=== PATIENT | female | born 1955 | race Caucasian/White ===

== ENCOUNTER 2017-10-24 12:38 | Emergency (ER) | payer OTHER ==
--- OUTSIDE RECORDS SUMMARY | 2017-10-24 12:45 | XMS REPORT | Continuity of Care Document ---
:1955 Author Organization Interface Problems Problem Status Onset Classification Date Comments Source Date Reported Shortness of 05/19/19 08/25/2017 [facility] breath Medical Center SHORTNESS OF Active 05/19/19 [facility] BREATH [address] [place] [address] Center R93.8; R91.1 Active 02/02/[address] Center CHEST Active 07/26/19 [facility] PAIN/NUMBNESS [address] [place] [address] Center INTRACTABLE Active 03/16/20 [facility] EPILEPSY WITHOUT 16 Medical STATUS EPIL Center EPILEPSY, Active 03/16/20 [facility] UNSOECIFIED Medical WITHOUT STATUS Center EPI SEIZURES Active 01/03/[address] Center INTRACTABLE Active 11/17/19 [facility] EPILEPSY 16 Medical UNDETERMINED Center TO INTRACTABLE Active 09/01/19 [facility] EPILEPSY 16 Medical UNDETERMINDED Center TO COPD/ HTN Active 05/27/[address] Asthma Active Problem 10/11/2017 [facility] Group COPD Active Problem 10/11/2017 [facility] Group Hypertension Resolved Problem 10/11/2017 [facility] Group Seizures Resolved Problem 10/11/2017 [facility] Medical Group Asthma Active Problem 10/11/2017 [facility] [place] COPD Active Problem 10/11/2017 [facility] [place] Hypertension Resolved Problem 10/11/2017 [facility] [place] Seizures Resolved Problem 10/11/2017 [facility] [place] Chronic 08/25/2017 [facility] obstructive Medical pulmonary Center disease, unspecified Essential 08/25/2017 [facility] Asthma Active Problem 10/22/2017 [facility] [place] COPD Active Problem 10/22/2017 [facility] [place] Hypertension Resolved Problem 10/22/2017 [facility] [place] Seizures Resolved Problem 10/22/2017 [facility] [place] OTHER SPECIFIED Active [facility] CONGENITAL Medical DEFORMITIES [place] Medications Medication Details Route Status Patient Ordering Order Source Instructions Provider Date predniSONE 20 mg 40 mg=2 tab, Active oral tablet PO, Daily, X 10 2017 day, # 20 tab, Group 0 Refill(s), Pharmacy: [facility] [id number] azithromycin 500 mg 500 mg=1 tab, Active oral tablet PO, Daily, X 5 2017 day, # 5 tab, 0 Group Refill(s), Pharmacy: [facility] [address] lisinopril 10 mg 10 mg=1 tab, Active oral tablet PO, Daily, # 90 2017 Medical tab, 1 Group Refill(s) clonazePAM 0.5 mg 0.25 mg=0.5 Active oral tablet tab, PO, Daily, 2018 Medical 0 Refill(s) Group Trazodone 50 mg=1 tab, Active Hydrochloride 50 MG PO, Bedtime, 2017 Medical Oral Tablet after meals Group with food. At least 1 hour prior to bedtime., # 30 tab, 2 Refill(s), Pharmacy: [facility] [address] lisinopril 10 mg 10 mg=1 tab, Active oral tablet PO, Daily, # 90 2017 Medical tab, 0 Group Refill(s), Pharmacy: [facility] sertraline 50 mg 50 mg=1 tab, Active oral tablet PO, Daily, # 30 2017 Medical tab, 1 Group Refill(s) lisinopril 10 mg See Inactive oral tablet Instructions, 1 2017 Medical tab PO Daily. Group TAKE 1/2 TAB DAILY., 0 Refill(s) Levetiracetam 500 1,000 mg=2 tab, Active MG Oral Tablet PO, Daily, 0 2017 Medical Refill(s) Group Caltrate 600+D Plus 1 tab, PO, BID, Active Minerals 0 Refill(s) 2018 Medical Group clonazePAM 0.5 mg See No Longer oral tablet Instructions, Active 2017 Medical 1 twice per Group day. 90day supply., 0 Refill(s) Ibuprofen 0 Refill(s) Active 2017 Medical Group Breo Ellipta 100 1 puff, Active mcg-25 mcg INHALATION, 2018 Medical inhalation powder Daily, 0 Group Refill(s) Aspirin 81 MG 81 mg=1 tab, Active Enteric Coated PO, Daily, # 90 2018 Medical Tablet tab, 3 Group Refill(s) lisinopril 5 mg 5 mg=1 tab, PO, No Longer oral tablet Daily, 0 Active 2018 Medical Refill(s) Group verapamil 120 mg 120 mg=1 tab, Active oral tablet PO, Daily, 0 2018 Medical Refill(s) Group 24 HR lamotrigine 100 mg=2 tab, No Longer 50 MG Extended PO, Daily, 0 Active 2018 Medical Release Tablet Refill(s) Group Valium 5 mg, 1 tab, Inactive [place] Route: PO, Drug 2017 Medical form: TAB, Center ONCE, Dosing Weight 41.818, kg, Priority: STAT, Start date: 05/19/17 15:02:00 SAMPLE SEWER, Stop date: 05/19/17 15:02:00 CSTNotes: (Same as: Valium) Albuterol 0.833 6 mL, Route: Inactive [place] MG/ML / Ipratropium NEB, Drug Form: 2018 Medical [place] 0.167 MG/ML SOLN, Dosing Center Inhalant Solution Weight 41.818, [DuoNeb] kg, ONCE, Start date: 05/19/17 15:01:00 SAMPLE SEWER, Stop date: 05/19/17 15:01:00 CSTNotes: (Same as: Duoneb) Verapamil 120 mg, 1 tab, Inactive [place] Route: PO, Drug 2016 Medical form: ERTAB, Center Daily, Dosing Weight 52.273, kg, Start date: 07/26/16 9:00:00 CDT, Duration: 30 day, Stop date: 08/24/16 9:00:00 CDTNotes: Do not crush or chew. (Same As: Calan SR, Isoptin SR) "Avoid grapefruit and grapefruit juice" Spiriva 18 microgram, 1 Inactive [place] inhalation, 2016 Medical Route: Center INHALATION, Drug form: CAP, Daily, Dosing Weight 52.273, kg, Start date: 07/26/16 9:00:00 CDT, Duration: 30 day, Stop date: 08/24/16 9:00:00 CDTNotes: (Same As: Spiriva) Lisinopril 10 mg, 1 tab, Inactive [facility] Route: PO, Drug 2017 Medical form: TAB, Center Daily, Dosing Weight 52.273, kg, Start date: 07/26/16 9:00:00 CDT, Duration: 30 day, Stop date: 08/24/16 9:00:00 CDTNotes: (Same as: Prinivil, Zestril) Levetiracetam 1000 1,000 mg, 2 Inactive [facility] MG Oral Tablet tab, Route: PO, 2017 Medical Drug form: TAB, Center Daily, Dosing Weight 52.273, kg, Start date: 07/26/16 9:00:00 CDT, Duration: 30 day, Stop date: 08/24/16 9:00:00 CDTNotes: (Same as:Keppra) lamotrigine 150 MG 150 mg, 1 tab, No Longer [facility] Oral Tablet Route: PO, Drug Active 2016 Medical form: TAB, Center Daily, Dosing Weight 52.273, kg, Start date: 07/26/16 9:00:00 CDT, Duration: 30 day, Stop date: 08/24/16 9:00:00 CDT LaMICtal 100 mg, 1 tab, Inactive [facility] Route: PO, Drug 2017 Medical form: TAB, Center Daily, Start date: 07/26/16 9:00:00 CDT, Duration: 30 day, Stop date: 08/24/16 9:00:00 CDTNotes: (Same as:LaMICtal) cetirizine 10 mg, 1 tab, Inactive [facility] Route: PO, Drug 2017 Medical form: TAB, Center Daily, Start date: 07/26/16 9:00:00 CDT, Duration: 30 day, Stop date: 08/24/16 9:00:00 CDTNotes: (Same As: Zyrtec) Clonazepam 0.5 mg, 1 tab, No Longer [facility] Route: PO, Drug Active 2016 Medical form: TAB, Center Bedtime, Dosing Weight 52.273, kg, Start date: 07/25/16 21:00:00 CDT, Duration: 30 day, Stop date: 08/23/16 21:00:00 CDTNotes: (Same As: KlonoPIN) atorvastatin 20 mg, 1 tab, No Longer [place] Route: PO, Drug Active 2016 Medical form: TAB, Center Bedtime, Dosing Weight 52.273, kg, Start date: 07/25/16 21:00:00 CDT, Duration: 30 day, Stop date: 08/23/16 21:00:00 CDTNotes: (Same As: Lipitor) Albuterol 0.833 3 mL, Route: No Longer [place] MG/ML / Ipratropium NEB, Drug Form: Active 2017 Medical [place] 0.167 MG/ML SOLN, Dosing Center Inhalant Solution Weight 52.273, kg, RQ6H, Start date: 07/25/16 20:00:00 CDT, Duration: 30 day, Stop date: 08/24/16 14:00:00 CDTNotes: (Same as: Duoneb) Famotidine 20 MG 20 mg, 1 tab, No Longer [place] Oral Tablet Route: PO, Drug Active 2016 Medical [Pepcid] form: TAB, BID, Center Dosing Weight 52.273, kg, Start date: 07/25/16 17:00:00 CDT, Duration: 30 day, Stop date: 08/24/16 9:00:00 CDTNotes: (Same as: Pepcid) Nebulizer 1 ea, MISC, Active [place] Misc/Other PRN, PRN As 2017 Medical directed by [place] physician, # 1 kit, 0 Refill(s) methylPREDNISolone 40 mg, 1 mL, No Longer [place] SODium SUCCinate Route: IVP, Active 2016 Medical Drug form: INJ, Center Q8H, Dosing Weight 52.273, kg, Start date: 07/25/16 16:00:00 CDT, Duration: 30 day, Stop date: 08/24/16 8:00:00 CDTNotes: (Same as:Solu-MEDROL, A-Methapred) Albuterol 0.83 2.49 mg=3 mL, Active [place] MG/ML Inhalant NEB, Q6H, PRN 2017 Medical Solution as needed for Center shortness of breath, # 120 ea, 3 Refill(s) predniSONE 20 mg 40 mg=2 tab, Active [facility] oral tablet PO, Daily, Take 2017 Medical 3 tablets for Center 60 mg dose, X 5 day, # 10 tab, 0 Refill(s) Symbicort 160/4.5 2 puff, Active [facility] inhalation aerosol INHALATION, 2017 Medical with adapter BID, # 1 ea, 0 Center Refill(s) tiotropium 0.018 18 microgram, Active [facility] MG/ACTUAT Inhalant INHALATION, 2017 Medical Powder [Spiriva] Daily, # 30 ea, Center 0 Refill(s) 200 ACTUAT 90 microgram=1 Active [facility] Albuterol 0.09 puff, INHALER, 2017 Medical MG/ACTUAT Metered Q4H, PRN for Center Dose Inhaler wheezing, # 1 [ProAir HFA] ea, 0 Refill(s) azithromycin 500 mg 500 mg=1 tab, Active [facility] oral tablet PO, Daily, X 3 2017 Medical day, # 3 tab, 0 Center Refill(s) Azithromycin 500 mg, Route: No Longer [place] IVPB, Drug Active 2016 Medical form: PDR/INJ, Center [id number], Dosing Weight 52.273, kg, Start date: 07/25/16 15:00:00 CDT, Duration: 30 day, Stop date: 08/23/16 15:00:00 CDTNotes: (Same As: Zithromax IV) LaMICtal 50 mg, 2 tab, No Longer [facility] Route: PO, Drug Active 2016 Medical form: TAB, Center Daily, Start date: 07/25/16 15:00:00 CDT, Duration: 30 day, Stop date: 08/24/16 9:00:00 CDTNotes: (Same as:LaMICtal) predniSONE 60 mg, 3 tab, Inactive [place] Route: PO, Drug 2016 Medical form: TAB, Center ONCE, Dosing Weight 52.273, kg, Priority: STAT, Start date: 07/25/16 14:33:00 CDT, Stop date: 07/25/16 14:33:00 CDTNotes: Take with food. Claritin 10 mg, 1 tab, Inactive [place] Route: PO, 2017 Medical Daily, Dosing Center Weight 52.273, kg, PRN as needed for allergy symptoms, Start date: 07/25/16 14:23:00 CDT, Duration: 30 day, Stop date: 08/24/16 14:22:00 CDT Docusate Sodium 100 100 mg, 1 cap, No Longer [place] MG Oral Capsule Route: PO, Drug Active 2017 Medical form: CAP, Center Q12H, Dosing Weight 52.273, kg, PRN Constipation, Start date: 07/25/16 14:22:00 CDT, Duration: 30 day, Stop date: 08/24/16 14:21:00 CDTNotes: (Same as: Colace) (Do Not Crush) Aspirin 162 mg, 2 tab, Inactive [place] Route: CHEW, 2017 Medical Drug form: [place] ECTAB, ONCE, Dosing Weight 52.273, kg, Priority: STAT, Start date: 07/25/16 13:43:00 CDT, Stop date: 07/25/16 13:43:00 CDTNotes: Do not crush or chew. (Same As: Ecotrin) Azithromycin 500 mg, 2 tab, Inactive [place] Route: PO, Drug 2017 Medical form: TAB, Center ONCE, Dosing Weight 52.273, kg, Start date: 07/25/16 13:35:00 CDT, Stop date: 07/25/16 13:35:00 CDTNotes: Take 1 hour before or 2 hours after meals. (Same As: Zithromax) Prednisone 60 mg, 1.2 tab, Inactive [place] Route: PO, Drug 2017 Medical form: TAB, Center ONCE, Dosing Weight 52.273, kg, Priority: STAT, Start date: 07/25/16 13:35:00 CDT, Stop date: 07/25/16 13:35:00 CDTNotes: Take with food. Albuterol 0.83 2.49 mg, 3 mL, Inactive [place] MG/ML Inhalant Route: NEB, 2017 Medical Solution Drug form: [place] SOLN, ONCE, Dosing Weight 52.273, kg, Priority: STAT, Start date: 07/25/16 11:57:00 CDT, Stop date: 07/25/16 11:57:00 CDTNotes: SEE RT DOCUMENTATION (Same as: Indigo) Keppra 1,000 mg, 2 Inactive [place] tab, Route: PO, 2017 Medical Drug form: TAB, Center ONCE, Dosing Weight 52.273, kg, Start date: 07/25/16 11:09:00 CDT, Stop date: 07/25/16 11:09:00 CDTNotes: (Same as:Keppra) Aspirin 81 mg, 1 tab, Inactive [place] Route: CHEW, 2017 Medical Drug form: Center CHEWTAB, ONCE, Dosing Weight 52.273, kg, Priority: STAT, Start date: 07/25/16 10:25:00 CDT, Stop date: 07/25/16 10:25:00 CDTNotes: Take with food. Albuterol 0.83 2.49 mg, 3 mL, Inactive [place] MG/ML Inhalant Route: NEB, 2016 Medical Solution Drug form: Center SOLN, ONCE, Dosing Weight 52.273, kg, Priority: STAT, Start date: 07/25/16 10:15:00 CDT, Stop date: 07/25/16 10:15:00 CDTNotes: SEE RT DOCUMENTATION (Same as: Indigo) Albuterol 0.833 3 ml, Route: No Longer [place] MG/ML / Ipratropium NEB, Drug Form: Active 2017 Medical [place] 0.167 MG/ML SOLN, Dosing Center Inhalant Solution Weight 52.273, [DuoNeb] kg, PRN, PRN Respiratory Protocol, Start date: 07/25/16 10:15:00 CDT, Duration: 30 day, Stop date: 08/24/16 10:14:00 CDTNotes: (Same as: Duoneb) Docusate Sodium 100 100 mg=1 cap, Active [place] MG Oral Capsule PO, Q12H, PRN 2016 Medical as needed for Center constipation, # 30 cap, 0 Refill(s) Famotidine 20 MG 20 mg=1 tab, Active [place] Oral Tablet PO, BID, # 60 2016 Medical [Pepcid] tab, 0 Center Refill(s) Acetaminophen 300 2 tab, PO, Q4H, Active [place] MG / Codeine PRN Pain Score 2015 Medical Phosphate 30 MG 4-6, X 14 day, Center Oral Tablet # 90 tab, 0 [Tylenol with Refill(s) Codeine #3] dexamethasone 4 mg 4 mg=1 tab, PO, Active [place] oral tablet TID, Taper 2015 Medical schedule: 3x a Center day for days 1/2, 2x a day for days 3/4, daily for days 5/6, 1/2 tab daily for day 7, X 7 day, # 21 tab, 0 Refill(s) Clonazepam 0.5 mg, 1 tab, No Longer [facility] Route: PO, Drug Active 2015 Medical form: TAB, Center Bedtime, Dosing Weight 42.727, kg, Start date: 01/17/16 21:00:00 CDT, Duration: 30 day, Stop date: 02/15/16 21:00:00 CDTNotes: (Same As: KlonoPIN) atorvastatin 20 mg, 1 tab, No Longer [facility] Route: PO, Drug Active 2015 Medical form: TAB, Center Bedtime, Dosing Weight 42.727, kg, Start date: 01/17/16 21:00:00 CDT, Duration: 30 day, Stop date: 02/15/16 21:00:00 CDTNotes: (Same As: Lipitor) vancomycin 1 gm, Route: No Longer [facility] IVPB, Drug Active 2015 Medical form: INJ, Center ABXQ8H, Start date: 01/17/16 18:30:00 CDT, Duration: 48 hr, Stop date: 01/19/16 10:30:00 CDTNotes: TIME CRITICAL MEDICATION (Same As: Vancocin) Infusion rate 2001 mg: infuse over 2.5 hours MEDICATION WASTE Product Size: 1000 mg Product Wasted: _0__ mg ceFAZolin 1 gm, Route: No Longer [facility] IV, Drug form: Active 2015 Medical PDR/INJ, Center ABXQ8H, Start date: 01/17/16 18:00:00 CDT, Duration: 2 day, Stop date: 01/19/16 10:00:00 CDTNotes: (Same As: Jahaira Brown) MEDICATION WASTE Product Size: 1000 mg Product Wasted: _0__ mg pantoprazole 40 mg, 1 tab, No Longer [place] Route: PO, Drug Active 2015 Medical form: ECTAB, Center Before Dinner, Dosing Weight 42.727, kg, Start date: 01/17/16 16:30:00 CDT, Duration: 30 day, Stop date: 02/15/16 16:30:00 CDTNotes: Tablet should not be chewed or crushed. (Same as: Protonix) Acetaminophen 325 1 tab, Route: No Longer [place] MG / Hydrocodone PO, Drug Form: Active 2015 Medical Bitartrate 10 MG TAB, Dosing Center Oral Tablet [[place] Weight 42.727, 10/325] kg, Q4H, PRN Pain Score 1-3, Start date: 01/17/16 14:11:00 CDT, Duration: 30 day, Stop date: 02/16/16 14:10:00 CDTNotes: (Same as: [place] 325/10) Dexamethasone 4 mg, 1 mL, No Longer [place] Route: IVP, Active 2015 Medical Drug form: INJ, Center Q6H, Dosing Weight 42.727, kg, Start date: 01/17/16 12:00:00 CDT, Duration: 5 day, Stop date: 01/22/16 6:00:00 CDTNotes: Concentration: 4mg/ml Vancomycin 6.67 1 gm, Route: Inactive [place] MG/ML Injectable IVPB, Drug 2015 Medical Solution form: INJ, Center ONCE, Dosing Weight 42.727, kg, Start date: 01/17/16 10:19:00 CDT, Stop date: 01/17/16 10:19:00 CDT Verapamil 120 mg, 1 tab, No Longer [place] Route: PO, Drug Active 2015 Medical form: ERTAB, Center Daily, Dosing Weight 42.727, kg, Start date: 01/17/16 9:00:00 CDT, Duration: 30 day, Stop date: 02/15/16 9:00:00 CDTNotes: Do not crush or chew. (Same As: Calan SR, Isoptin SR) "Avoid grapefruit and grapefruit juice" Spiriva 18 microgram, 1 No Longer [facility] inhalation, Active 2015 Medical Route: Center INHALATION, Drug form: CAP, Daily, Dosing Weight 42.727, kg, Start date: 01/17/16 9:00:00 CDT, Duration: 30 day, Stop date: 02/15/16 9:00:00 CDTNotes: (Same As: Spiriva) Levetiracetam 1000 1,000 mg, 2 No Longer [facility] MG Oral Tablet tab, Route: PO, Active 2015 Medical Drug form: TAB, Center Daily, Dosing Weight 42.727, kg, Start date: 01/17/16 9:00:00 CDT, Duration: 30 day, Stop date: 02/15/16 9:00:00 CDTNotes: (Same as:Keppra) Lisinopril 10 mg, 1 tab, No Longer [facility] Route: PO, Drug Active 2015 Medical form: TAB, Center Daily, Dosing Weight 42.727, kg, Start date: 01/17/16 9:00:00 CDT, Duration: 30 day, Stop date: 02/15/16 9:00:00 CDTNotes: (Same as: Prinivil, Zestril) lamotrigine 150 MG 150 mg, 1.5 No Longer [facility] Oral Tablet tab, Route: PO, Active 2015 Medical Drug form: TAB, Center Daily, Dosing Weight 42.727, kg, Start date: 01/17/16 9:00:00 CDT, Duration: 30 day, Stop date: 02/15/16 9:00:00 CDTNotes: (Same as:LaMICtal) Docusate Sodium 100 100 mg, 1 cap, No Longer [facility] MG Oral Capsule Route: PO, Drug Active 2015 Medical form: CAP, Center Q12H, Dosing Weight 42.727, kg, Start date: 01/17/16 9:00:00 CDT, Duration: 30 day, Stop date: 02/15/16 21:00:00 CDTNotes: (Same as: Colace) (Do Not Crush) Saline Flush 0.9% 10 ml, Route: No Longer [facility] IVP, Drug Form: Active 2015 Medical INJ, Dosing Center Weight 42.727, kg, Q12H, Start date: 01/17/16 9:00:00 CDT, Duration: 30 day, Stop date: 02/15/16 21:00:00 CDTNotes: (Same as: BD Posiflush) sennosides, CUSTODIAL 8.6 mg, 1 tab, No Longer [facility] Route: PO, Drug Active 2015 Medical Form: TAB, Center Dosing Weight 42.727, kg, Q12H, Start date: 01/17/16 9:00:00 CDT, Duration: 30 day, Stop date: 02/15/16 21:00:00 CDTNotes: (Same as: Senokot) Vancomycin 6.67 1,000 mg, Inactive [facility] MG/ML Injectable Route: IVPB, 2015 Medical Solution Drug form: INJ, Center Q8H, Dosing Weight 42.727, kg, Start date: 01/17/16 8:00:00 CDT, Duration: 48 hr, Stop date: 01/19/16 0:00:00 CDT Cefazolin 1 gm, Route: Inactive [facility] IVPB, ABXQ8H, 2016 Medical Dosing Weight Center 42.727, kg, For Ventolin HFA 90 2 puff, Route: No Longer [facility] mcg/inh inhalation INHALER, Drug Active 2015 Medical aerosol with Form: AERO/A, Center adapter Dosing Weight 42.727, kg, QID, PRN as needed for wheezing, Start date: 01/17/16 6:15:00 CDT, Duration: 30 day, Stop date: 02/16/16 6:14:00 CDTNotes: Albuterol 90 microgram/inh 8gm HFA WASTE: Aerosol - Return to Pharmacy Same as: Ventolin, Proventil 200 ACTUAT 1 puff, Route: No Longer [facility] Albuterol 0.09 INHALER, Drug Active 2015 Medical MG/ACTUAT Metered Form: AERO/A, Center Dose Inhaler Dosing Weight [ProAir HFA] 42.727, kg, Q4H, PRN Wheezing, Start date: 01/17/16 6:15:00 CDT, Duration: 30 day, Stop date: 02/16/16 6:14:00 CDTNotes: Albuterol 90 microgram/inh 8gm HFA WASTE: Aerosol - Return to Pharmacy Same as: Venttatiana, Proventil Insulin regular 8 unit, 0.08 No Longer [place] mL, Route: Active 2015 Medical SUB-Q, Drug Center form: SOLN, Sliding Scale, Dosing Weight 42.727, kg, PRN Blood Glucose Results, Start date: 01/17/16 6:13:00 CDT, Duration: 30 day, Stop date: 02/16/16 6:12:00 CDTNotes: (Same as: Humulin R) Roll in palms of hands gently; Do not shake vigorously. "single patient use only" (Restricted to patients requiring a dose > 60 units) WASTE: F/P - Black; E - Municipal Trash Bin Stable for 28 days at room temperature Expires in days from D ate Saline Flush 0.9% 10 ml, Route: No Longer [place] IVP, Drug Form: Active 2015 Medical INJ, Dosing Center Weight 42.727, kg, PRN, PRN Line Flush, Start date: 01/17/16 6:13:00 CDT, Duration: 30 day, Stop date: 02/16/16 6:12:00 CDTNotes: (Same as: BD Posiflush) Morphine 2 mg, 1 mL, No Longer [facility] Route: IVP, Active 2015 Medical Drug form: INJ, Center Q1H, Dosing Weight 42.727, kg, PRN Pain Score 7-10, Start date: 01/17/16 6:13:00 CDT, Duration: 30 day, Stop date: 02/16/16 6:12:00 CDTNotes: (Same as:MORPhine Sulfate) Ondansetron 4 mg, 2 mL, No Longer [facility] Route: IVP, Active 2015 Medical Drug form: INJ, Center Q8H, Dosing Weight 42.727, kg, PRN Nausea & Vomiting, Start date: 01/17/16 6:13:00 CDT, Duration: 30 day, Stop date: 02/16/16 6:12:00 CDTNotes: (Same as: Jez) MEDICATION WASTE Product Size: 4 mg Product Wasted: __0_ mg Sodium Chloride 1,000 mL, Rate: No Longer [place] 0.154 MEQ/ML 100 ml/hr, Active 2015 Medical Injectable Solution Infuse over: 10 Center hr, Route: IV, Dosing Weight 42.727 kg, Total Volume: 1,000, Start date: 01/17/16 6:13:00 CDT, Duration: 30 day, Stop date: 02/16/16 6:12:00 CDT ceFAZolin 2 gm, 100 mL, Inactive [facility] Route: IVPB, 2015 Medical Drug form: INJ, Center PRE OP, Start date: 01/17/16 5:00:00 CDT, Duration: 1 day, Stop date: 01/18/16 4:59:00 CDTNotes: Same as: Ancef NS + KCL 20mEq/L 1,000 mL, Rate: No Longer [facility] 1000ml (Premix) 70 ml/hr, Active 2015 Medical 1,000 mL Infuse over: Center 14.3 hr, Route: IV, Dosing Weight 42.727 kg, Total Volume: 1,000, Start date: 01/17/16 5:00:00 CDT, Duration: 1 day, Stop date: 01/18/16 4:59:00 CDTNotes: PREMIX IV - Do Not Alter WASTE: F/P - Sink; E - Municipal Trash Bin LaMICtal XR 150 mg, Route: Inactive [place] PO, Daily, 2016 Medical Dosing Weight Center 43.636, kg, Priority: STAT, Start date: 12/17/15 11:57:00 CDT, Duration: 30 day, Stop date: 01/16/16 9:00:00 CDT Keppra 1,000 mg, Inactive [place] Route: IV, 2015 Medical ONCE, Dosing Center Weight 43.636, kg, Start date: 12/17/15 6:48:00 CDT, Stop date: 12/17/15 6:48:00 CDTNotes: Same as Keppra Mix with 100 mL NS, LR or D5W MEDICATION WASTE Product Size: 500 mg Product Wasted: ___ mg Acetaminophen 300 1 tab, PO, Q4H, Active [facility] MG / Codeine PRN for pain, # 2016 Medical Phosphate 30 MG 60 tab, 0 Center Oral Tablet Refill(s) [Tylenol with Codeine #3] Ondansetron 4 MG 4 mg=1 tab, PO, Active [place] Oral Tablet Q8H, # 60 tab, 2016 Medical [Zofran] 0 Refill(s) [place] Docusate Sodium 100 100 mg=1 cap, Active [facility] MG Oral Capsule PO, Q12H, # 30 2016 Medical cap, 0 Center Refill(s) magnesium citrate 300 ml, Route: No Longer [place] PO, Drug Form: Active 2015 Medical LIQ, Dosing Center Weight 43.636, kg, ONCE, Start date: 12/16/15 17:02:00 CDT, Stop date: 12/16/15 17:02:00 CDTNotes: (Same as: Citrate of Magnesia) remove patch 1 patch, Route: No Longer [facility] TOP, Drug form: Active 2015 Medical ERFILM, Daily, Center Start date: 12/16/15 9:00:00 CDT, Duration: 30 day, Stop date: 01/14/16 9:00:00 CDTNotes: Remove old patch before application of new patch. WASTE: F/P - P Waste Black; E - P Waste Black Ativan 1 mg, 0.5 mL, Inactive [place] Route: IV, Drug 2015 Medical form: INJ, Center ONCE, Dosing Weight 43.636, kg, Priority: NOW, Start date: 12/16/15 7:32:00 CDT, Stop date: 12/16/15 7:32:00 CDTNotes: (Same as: Ativan) Hydroxyzine 25 mg, 1 tab, No Longer [place] Hydrochloride 25 MG Route: PO, Drug Active 2015 Medical Oral Capsule form: TAB, Q6H, Center [Vistaril] Dosing Weight 43.636, kg, PRN Anxiety, Start date: 12/15/15 16:08:00 CDT, Duration: 30 day, Stop date: 01/14/16 16:07:00 CDTNotes: (Same as: Atarax) Nicoderm C-Q 7 mg, 1 patch, No Longer [place] Route: TOP, Active 2015 Medical Drug form: [place] ERFILM, Daily, Dosing Weight 43.636, kg, Start date: 12/15/15 13:00:00 CDT, Duration: 30 day, Stop date: 01/14/16 9:00:00 CDTNotes: (Same as: Habitrol) "Remove old patch before application of new patch" WASTE: F/P - P Waste Black; E - P Waste Black Effexor XR 37.5 mg, 1 cap, Inactive [place] Route: PO, Drug 2015 Medical form: ERCAP, Center Daily, Dosing Weight 43.636, kg, Start date: 12/15/15 13:00:00 CDT, Duration: 30 day, Stop date: 01/14/16 9:00:00 CDTNotes: Do not open, crush, or chew. (Same As: Effexor XR) Keppra XR 1,000 mg, 2 No Longer [place] tab, Route: PO, Active 2015 Medical Drug form: [place] MERCEDES SEVERINO, Dosing Weight 43.636, kg, Start date: 12/15/15 9:00:00 CDT, Duration: 30 day, Stop date: 01/13/16 9:00:00 CDTNotes: Same as: Keppra XR "Do Not Crush" Non-Formulary Item pneumococcal 0.5 mL, Route: Inactive [place] capsular IM, Drug Form: 2016 Medical polysaccharide type INJ, Daily, Center 1 vaccine / Start date: pneumococcal 12/15/15 capsular 9:00:00 CDT, polysaccharide type Duration: 1 10A vaccine / doses or times, pneumococcal Stop date: capsular 12/15/15 polysaccharide type 9:00:00 11A vaccine / CDTNotes: (Same pneumococcal as: Pneumovax capsular 23) polysaccharide type Refrigerate 12F vaccine / pneumococcal capsular polysacchar Levetiracetam 1000 1,000 mg, 1 No Longer [place] MG Oral Tablet tab, Route: PO, Active 2015 Medical Drug form: TAB, Center Daily, Dosing Weight 43.636, kg, Start date: 12/15/15 9:00:00 CDT, Duration: 30 day, Stop date: 01/13/16 9:00:00 CDT Verapamil 120 mg, 1 tab, No Longer [place] Route: PO, Drug Active 2015 Medical form: ERTAB, Center Daily, Dosing Weight 43.636, kg, Start date: 12/15/15 9:00:00 CDT, Duration: 30 day, Stop date: 01/13/16 9:00:00 CDTNotes: Do not crush or chew. (Same As: Calan SR, Isoptin SR) "Avoid grapefruit and grapefruit juice" heparin 5,000 unit, 1 No Longer [place] mL, Route: Active 2015 Medical SUB-Q, Drug Center form: INJ, Q12H, Dosing Weight 43.636, kg, Start date: 12/15/15 9:00:00 CDT, Duration: 30 day, Stop date: 01/13/16 21:00:00 CDTNotes: porcine heparin Spiriva 18 microgram, 1 No Longer [facility] inhalation, Active 2015 Medical Route: Center INHALATION, Drug form: CAP, RDaily, Dosing Weight 43.636, kg, Start date: 12/15/15 8:00:00 CDT, Duration: 30 day, Stop date: 01/13/16 8:00:00 CDTNotes: (Same As: Spiriva) ketOROLAC 30 mg/mL 15 mg, Route: Inactive [place] injectable solution IV, Drug form: 2016 Medical INJ, Q6H, Center Dosing Weight 43.636, kg, Start date: 12/15/15 6:00:00 CDT, Duration: 2 day, Stop date: 12/17/15 0:00:00 CDT, > 60 kg; Pediatric Dosing ketOROLAC 30 mg/mL 15 mg, 0.5 mL, No Longer [place] injectable solution Route: IV, Drug Active 2015 Medical form: INJ, Q6H, Center Dosing Weight 43.636, kg, PRN Pain 4-6/Temp > 100.4 F, Start date: 12/15/15 5:01:00 CDT, Duration: 2 day, Stop date: 12/17/15 5:00:00 CDT, > 60 kg; Pediatric DosingNotes: (Same as:Toradol) IV bolus must be given >15 seconds. Give IM administration slowly and deeply into the muscle. Not for use > 4 days MEDICATION WASTE Product Size: 30 mg Product Wasted: ___ mg atorvastatin 20 mg, 2 tab, No Longer [place] Route: PO, Drug Active 2015 Medical form: TAB, Center Bedtime, Dosing Weight 43.636, kg, Start date: 12/14/15 21:00:00 CDT, Duration: 30 day, Stop date: 01/12/16 21:00:00 CDTNotes: (Same As: Lipitor) Milk of Magnesia 30 mL, Route: No Longer [place] PO, Drug Form: Active 2015 Medical SUSP, Dosing Center Weight 43.636, kg, Q6H, PRN Constipation, Start date: 12/14/15 17:29:00 CDT, Duration: 30 day, Stop date: 01/13/16 17:28:00 CDTNotes: (Same as: Milk of Magnesia, MOM) Reglan 10 mg, 2 mL, No Longer [facility] Route: IVP, Active 2015 Medical Drug form: INJ, Center Q6H, Dosing Weight 43.636, kg, PRN Nausea & Vomiting, Start date: 12/14/15 15:13:00 CDT, Duration: 30 day, Stop date: 01/13/16 15:12:00 CDTNotes: (Same as: Reglan) Lisinopril 10 mg, 1 tab, No Longer [facility] Route: PO, Drug Active 2015 Medical form: TAB, Center Daily, Dosing Weight 43.636, kg, Start date: 12/14/15 13:00:00 CDT, Duration: 30 day, Stop date: 01/13/16 9:00:00 CDTNotes: (Same as: Prinivil, Zestril) ZyrTEC 10 mg, 1 tab, No Longer [facility] Route: PO, Drug Active 2015 Medical form: TAB, Center Daily, PRN Allergies, Start date: 12/14/15 12:05:00 CDT, Duration: 30 day, Stop date: 01/13/16 12:04:00 CDTNotes: (Same As: Zyrtec) ceFAZolin + sodium 2 gm, Route: No Longer [place] chloride 0.9% INJ IVPB, PRE OP, Active 2015 Medical 100 mL Start date: Center 12/14/15 12:00:00 CDT, Duration: 1 doses or timesNotes: (Same As: Jahaira Brown) MEDICATION WASTE Product Size: 1000 mg Product Wasted: ___ mg Claritin 10 mg, 1 tab, Inactive [place] Route: PO, 2016 Medical Daily, Dosing Center Weight 43.636, kg, PRN as needed for allergy symptoms, Start date: 12/14/15 11:26:00 CDT, Duration: 30 day, Stop date: 01/13/16 11:25:00 CDT Ventolin HFA 90 2 puff, Route: No Longer [facility] mcg/inh inhalation INHALER, Drug Active 2015 Medical aerosol with Form: AERO/A, Center adapter Dosing Weight 43.636, kg, QID, PRN as needed for wheezing, Start date: 12/14/15 11:26:00 CDT, Duration: 30 day, Stop date: 01/13/16 11:25:00 CDTNotes: (albuterol 90 microgram/inh 6.7gm AER) WASTE: Aerosol - Return to Pharmacy (Same as: Proventil HFA) vancomycin 1,000 mg, No Longer [facility] Route: IVPB, Active 2015 Medical Drug form: INJ, Center [id number], Dosing Weight 43.636, kg, Time Critical Medication, Priority: Routine, Start date: 12/14/15 3:00:00 CDT, Duration: 2 day, Stop date: 12/15/15 15:00:00 CDTNotes: TIME CRITICAL MEDICATION (Same As: Vancocin) Infusion rate 2001 mg: infuse over 2.5 hours MEDICATION WASTE Product Size: 1000 mg Product Wasted: ___ mg ceFAZolin + sodium 2 gm, Route: No Longer [facility] [place] chloride 0.9% INJ IVPB, ABXQ8H, Active 2015 Medical 100 mL Dosing Weight Center 43.636, kg, Priority: Routine, Start date: 12/13/15 23:00:00 CDT, Duration: 2 day, Stop date: 12/15/15 15:00:00 CDTNotes: (Same As: Jahaira Brown) MEDICATION WASTE Product Size: 1000 mg Product Wasted: ___ mg Docusate 100 mg, 1 cap, No Longer [facility] Route: PO, Drug Active 2015 Medical form: CAP, Center Q12H, Dosing Weight 43.636, kg, Start date: 12/13/15 21:00:00 CDT, Duration: 30 day, Stop date: 01/12/16 9:00:00 CDTNotes: (Same as: Colace) (Do Not Crush) Famotidine 20 mg, 2 mL, No Longer [place] Route: IVP, Active 2015 Medical Drug form: INJ, Center Q12H, Dosing Weight 43.636, kg, Start date: 12/13/15 21:00:00 CDT, Duration: 24 hr, Stop date: 12/14/15 9:00:00 CDTNotes: (Same as: Pepcid) Can be dilute in 5-10cc NS IVP: Slow IV push over at least 2 minutes. Dexamethasone 4 mg, 1 mL, No Longer [facility] Route: IVP, Active 2015 Medical Drug form: INJ, Center Q6H, Dosing Weight 43.636, kg, Start date: 12/13/15 18:00:00 CDT, Duration: 24 hr, Stop date: 12/14/15 12:00:00 CDTNotes: Concentration: 4mg/ml Vancomycin 1,000 mg, Inactive [facility] Route: IVPB, 2015 Medical Drug form: INJ, Center [id number], Dosing Weight 43.636, kg, Time Critical Medication, Priority: Routine, Start date: 12/13/15 18:00:00 CDT, Duration: 2 day, Stop date: 12/15/15 6:00:00 CDTNotes: TIME CRITICAL MEDICATION (Same As: Vancocin) Infusion rate 2001 mg: infuse over 2.5 hours MEDICATION WASTE Product Size: 1000 mg Product Wasted: ___ mg Cefazolin 2 gm, Route: Inactive [place] IVPB, ABXQ8H, 2015 Medical Dosing Weight Center 43.636, kg, Priority: Routine, Start date: 12/13/15 18:00:00 CDT, Duration: 2 day, Stop date: 12/15/15 10:00:00 CDTNotes: (Same As: Jahaira Brown) MEDICATION WASTE Product Size: 1000 mg Product Wasted: ___ mg Dexamethasone 4 mg, 1 mL, No Longer [facility] Route: IVP, Active 2015 Medical Drug form: INJ, Center ONCE, Dosing Weight 43.636, kg, PRN Nausea & Vomiting, Start date: 12/13/15 17:44:00 CDTNotes: Concentration: 4mg/ml Ondansetron 4 mg, 2 mL, No Longer [facility] Route: IVP, Active 2015 Medical Drug form: INJ, Center ONCE, Dosing Weight 43.636, kg, PRN Nausea & Vomiting, Start date: 12/13/15 17:44:00 CDTNotes: (Same as: Zofran) MEDICATION WASTE Product Size: 4 mg Product Wasted: ___ mg Flumazenil 0.2 mg, 2 mL, No Longer [facility] Route: IVP, Active 2015 Medical Drug form: INJ, Center PRN, Dosing Weight 43.636, kg, PRN Benzodiazepine Reversal, Initial dose, Start date: 12/13/15 17:44:00 CDT, Stop date: 12/14/15 0:00:00 CDTNotes: (Same as: Romazicon) Naloxone 0.4 mg, 1 mL, No Longer [facility] Route: IVP, Active 2015 Medical Drug form: INJ, Center Q2MIN, Dosing Weight 43.636, kg, PRN Narcotic Reversal, Start date: 12/13/15 17:44:00 CDT, Duration: 8 doses or times, Stop date: 12/14/15 0:00:00 CDTNotes: Same as Narcan Hydromorphone 0.5 mg, 0.25 No Longer [place] mL, Route: IVP, Active 2015 Medical Drug form: INJ, Center Q5Min, Dosing Weight 43.636, kg, PRN Pain Score 7-10, Start date: 12/13/15 17:44:00 CDT, Duration: 4 doses or times, Stop date: 12/14/15 0:00:00 CDTNotes: Same as Dilaudid Oxycodone 5 mg, 1 tab, No Longer [place] Route: PO, Drug Active 2015 Medical form: TAB, Q4H, Center Dosing Weight 43.636, kg, PRN Pain Score 4-6, Start date: 12/13/15 17:44:00 CDT, Stop date: 12/14/15 0:00:00 CDTNotes: (Same as: Roxicodone) Labetalol 10 mg, 2 mL, No Longer [place] Route: IVP, Active 2015 Medical Drug form: INJ, Center Q5Min, Dosing Weight 43.636, kg, PRN Elevated BP, Start date: 12/13/15 17:44:00 CDT, Duration: 5 doses or times, Stop date: 12/14/15 0:00:00 CDT Hydralazine 10 mg, 0.5 mL, No Longer [place] Route: IVP, Active 2015 Medical Drug form: INJ, Center Q20Min, Dosing Weight 43.636, kg, PRN Elevated BP, Start date: 12/13/15 17:44:00 CDT, Duration: 2 doses or times, Stop date: 12/14/15 0:00:00 CDTNotes: (Same as: Apresoline) Push over 5 minutes Hydralazine 10 mg, 0.5 mL, No Longer [place] Route: IVP, Active 2015 Medical Drug form: INJ, Center Q1H, Dosing Weight 43.636, kg, PRN Other -See Comment, Start date: 12/13/15 17:29:00 CDT, Duration: 30 day, Stop date: 01/12/16 17:28:00 CDT, PRN for SBP > 140 and HR Notes: (Same as: Apresoline) Push over 5 minutes Labetalol 10 mg, 2 mL, No Longer [place] Route: IVP, Active 2015 Medical Drug form: INJ, Center Q10Min, Dosing Weight 43.636, kg, PRN Other -See Comment, Start date: 12/13/15 17:29:00 CDT, Duration: 30 day, Stop date: 01/12/16 17:28:00 CDT, SBP > 140 and HR > 80 Ondansetron 4 mg, 2 mL, No Longer [place] Route: IVP, Active 2015 Medical Drug form: INJ, Center Q6H, Dosing Weight 43.636, kg, PRN Nausea & Vomiting, Start date: 12/13/15 17:29:00 CDT, Duration: 30 day, Stop date: 01/12/16 17:28:00 CDTNotes: (Same as: Zofran) MEDICATION WASTE Product Size: 4 mg Product Wasted: ___ mg Acetaminophen 325 1 tab, Route: No Longer [place] MG / Hydrocodone PO, Drug Form: Active 2015 Medical Bitartrate 7.5 MG TAB, Dosing Center Oral Tablet [[place] Weight 43.636, 7.5/325] kg, Q4H, PRN Pain Score 1-3, Start date: 12/13/15 17:29:00 CDT, Stop date: 01/12/16 17:28:00 CDTNotes: Same as [place] 325-7.5mg Do not exceed 4gm/day of acetaminophen. Ondansetron 4 MG 4 mg, 1 tab, No Longer [place] Disintegrating Route: PO, Drug Active 2015 Medical Tablet form: TABDIS, Center Q6H, Dosing Weight 43.636, kg, PRN Nausea & Vomiting, Start date: 12/13/15 17:29:00 CDT, Duration: 30 day, Stop date: 01/12/16 17:28:00 CDTNotes: (Same as: Zofran ODT) Morphine 3 mg, Route: Inactive [place] IVP, Q2H, 2016 Medical Dosing Weight Center 43.636, kg, PRN Pain Score 6-10, Discontinue on Post-Op Day #3, Start date: 12/13/15 17:29:00 CDT, Duration: 30 day, Stop date: 01/12/16 17:28:00 CDT sodium chloride 1,000 mL, Rate: No Longer 12/12/ [place] 0.9% 1000 ml INJ 50 ml/hr, Active 2015 Medical 1,000 mL Infuse over: 20 Center hr, Route: IV, Dosing Weight 43.636 kg, Total Volume: 1,000, [place] IV when PO > 500ml, Priority: Routine, Start date: 12/13/15 17:29:00 CDT, Duration: 30 day, Stop date: 01/12/16 17:28:00 CDTNotes: PREMIX IV - Do Not Alter WASTE: F/P - Sink; E - Municipal Trash Bin Allergies, Adverse Reactions, Alerts Substance Category Reaction Severity Reaction Status Date Comments Source type Reported NKDA Assertion Drug Active OPI allergy [place] Immunizations Immunization Date Given Site Status Last Updated Comments Source pneumococcal 02/16/2015 Not Given [facility] 23-valent vaccine [facility], [facility] influenza virus 02/16/2015 Not Given [facility] vaccine, [facility] inactivated [place] pneumococcal 02/16/2015 Not Given [facility] 23-valent vaccine [facility] influenza virus 02/16/2015 Not Given [facility] pneumococcal 02/16/2015 Not Given [facility] 23-valent vaccine [facility] influenza virus 02/16/2015 Not Given [facility] Results Order Name Results Value Reference Date Interpretation Comments Source Range Chest w/wo Chest w/wo Patient Name: [facility] contrast [facility] /2017 - [place] : 1955; Age: 62 years y/o Female MR: [id number] Read by: Krish Wood MD Dictated Date/time: 10/19/17 15:38 Electronically Signed by: Krish Wood MD 10/19/17 16:01 FINAL REPORT Study: Chest w/wo contrast CT 10/19/2017 2:45 PM CDT Ordering Physician: Clinical Indication: - lung nodule luq grown; Comparison: PET/CT 02/05/2017.Chest radiograph 10/08/2017. CT Radiation Dose DLP 289. mGy-cm CT chest without and with IV contrast. FINDINGS: Emphysematous changes within the lungs. There is however a NEW spiculated pulmonary nodule within the subareolar clinical left upper lobe measuring 12 x 10 x 14 mm. An area of reticular scarring within the left upper lobe is otherwise stable since 02/05/2017 PET/CT. There is no additional pulmonary nodule or mass appreciated. No pleural effusion. There is no mediastinal or hilar mass or adenopathy. The thoracic aorta is normal. Pulmonary arteries, SVC appear normal. Coronary artery calcifications are present. Heart size is normal. No pericardial effusion. There is a new sclerotic bone lesion within the anterolateral right 9th rib, image 70 series 2, and image 32 series 601B. No other new bone lesions are confirmed. Limited visualized upper abdomen is not remarkable. IMPRESSION: Left upper lobe 12 x 10 x 14 mm spiculated nodule, which is new since PET/ CT 02/05/2017. As this is concerning for lung carcinoma, further evaluation by PET CT and/or lung biopsy would be indicated. No additional new pulmonary lesions are appreciated. New sclerotic lesion within the right 9th rib, however does raise concern for bony metastatic process. Consider bone scan for further evaluation. SL: [id number] HEMATOLOGY Platelet 199 K/CMM 140 - 400 10/09 Medical Group HEMATOLOGY RDW 12.5 % 11.0 - 10/09 MH 15.0 Medical Group HEMATOLOGY Segs-Bands # [id number] 1500 - 10/09 Cells/uL 7800 /2017 Medical Group HEMATOLOGY MPV 10.7 fL 7.5 - 12.5 10/09 Medical Group HEMATOLOGY Lymphocytes 35.6 % 10/09 Medical Group HEMATOLOGY Monocytes 6.8 % 10/09 Medical Group HEMATOLOGY Basophils 0.5 % 10/09 Medical Group HEMATOLOGY Segs 56.5 % 10/09 Medical Group HEMATOLOGY Monocytes # 530 200 - 950 10/09 Cells/uL [facility] Group HEMATOLOGY Eosinophils 47 15 - 500 10/09 MH # Cells/uL /2017 Medical Group HEMATOLOGY Lymphocytes 2777 850 - 3900 10/09 # Cells/uL [facility] Group HEMATOLOGY Eosinophils 0.6 % 10/09 Medical Group HEMATOLOGY Basophils # 39 0 - 200 10/09 Cells/uL /2017 Medical Group HEMATOLOGY Hct 41.9 % 35.0 - 10/09 MH 45.0 /2017 Medical Group HEMATOLOGY MCV 91.9 fL 80.0 - 10/09 MH 100.0 /2017 Medical [facility] HEMATOLOGY Hgb 14.1 g/dL 11.7 - 10/09 MH 15.5 /2017 Medical Group HEMATOLOGY MCHC 33.7 g/dL 32.0 - 10/09 MH 36.0 Medical Group HEMATOLOGY MCH 30.9 pg 27.0 - 10/09 MH 33.0 Medical [facility] HEMATOLOGY WBC X 10x3 7.8 K/CMM 3.8 - 10.8 10/09 Result Comment: Lab test performed by: [facility] [address] [place] [id number] Inga Tripp HEMATOLOGY RBC X 10x6 4.56 M/CMM 3.80 - 10/09 MH 5.10 [facility] Chest 2 Chest 2 EXAM: XR CHEST 2 VIEWS 10/08 - [facility] views DX views - [place] DATE: 10/08/2017 2:47 PM CDT Read by: Warren Lopez Dictated Date/time: 10/08/17 15:21 Electronically Signed by: Warren Lopez 10/08/17 15:26 FINAL REPORT INDICATION: - R91.1 Solitary pulmonary nodule / J44.0 Chronic obstructive pulmonary disease with acute lower respiratory infection COMPARISON: 05/19/2017 TECHNIQUE: PA and lateral chest radiographs FINDINGS: Both lungs are hyperinflated. A 1.9 cm nodular opacity seen in the left upper lobe. No pleural effusions. Heart is not enlarged. Thoracic aortic arch calcifications seen. Bones are unremarkable. IMPRESSION: 1. A 1.9 cm left upper lobe nodule is new since prior x-ray and is superomedial to the 1.1 cm nodule/scar seen on the comparison CT and PET. Dedicated CT chest is recommended. 2. Hyperinflated lungs corresponding to known chronic obstructive pulmonary disease. Chest 1view Chest 1view EXAM: XR CHEST 1 VIEW 05/19 - [place] DX DX /2017 - [facility] This report was dictated by a Inter Com Installer/Fellow. I have personally reviewed the images as Center well as the Resident's interpretation and agree with the findings. DATE: 05/19/2017 3:02 PM SAMPLE SEWER Read by: Seth Corrales MD Resident: Seth Corrales MD Dictated Date/time: 05/19/17 16:14 Electronically Signed by: Tl Salazar MD 05/19/17 16:31 FINAL REPORT INDICATION: - shortness of breath COMPARISON: Chest radiograph from 07/25/2016. TECHNIQUE: AP chest FINDINGS: Lines, tubes and hardware: None. Lungs and pleura: The lungs are hyperinflated but otherwise clear, demonstrating architectural distortion of the apices consistent with emphysematous changes. No new focal consolidation is identified. . There is no pleural effusion or pneumothorax. Pulmonary vascularity is normal. Heart and mediastinum: The heart size is normal for technique. The mediastinal contours are unchanged. Calcifications are seen at the aortic arch. Bones: No acute bony abnormality is identified. IMPRESSION: Emphysematous changes without any acute cardiopulmonary abnormality. [place] SECTION: ER PET CT PET CT Tumor EXAM: [place] PET CT Skull Base to Mid Thigh 02/05 - [facility] This report was dictated by a Inter Com Installer/Fellow. I have personally reviewed the images as Center [facility] well as the Resident's interpretation and agree with the findings. DATE: 02/05/2017 1:34 PM CDT Read by: Alessandra Mata MD Resident: Alessandra Mata MD Dictated Date/time: 02/06/17 10:56 Electronically Signed by: Ian Cook MD 02/06/17 15:25 FINAL REPORT INDICATION: Abnormal CT of the Chest and Solitary Pulmonary Nodule COMPARISON: Chest CT dated 09/19/2016 and 01/01/2017 TECHNIQUE: Approximately 60 minutes after IV injection of 18 mCi FDG, PET/ CT imaging was performed from the level of the skull base to the midthigh. FINDINGS: Head and neck: There is no abnormal increased or decreased FDG activity in the imaged brain and cervical regions. Chest: Continued interval decrease in size of a 1.1 x 1.0 cm left upper lobe pulmonary nodule, demonstrating minimum FDG avidity, with a max SUV of 0.4 (series 2, image 98). The lesion previously measu red 1.3 x 2.7 cm in September 2016 and 0.9 x 1.4 cm in December 2016. Mild scattered emphysematous changes and bibasilar subsegmental atelectasis. Unchanged calcified pulmonary nodule in the right upper lobe. Linear density in the right middle lobe is with no FDG uptake a nd is unchanged from September 2016, and likely represents subsegmental atelectasis versus scar. Abdomen and pelvis: No focal abnormal FDG uptake is identified in the liver, bilateral adrenals, spleen, or pancreas. No FDG avid lymphadenopathy is seen in the retroperitoneum and pelvis. Small, 1.2 cm hyperdense cyst seen in the left kidney superior pole (series 2, image 149), unchanged since prior exam, likely representing a proteinaceous/ hemorrhagic cyst. Skeleton: No focal abnormal FDG activity is identified in the skeleton to suggest bony metastasis. IMPRESSION: Continued interval decrease in size of the 1.1 cm left upper lobe pulmonary nodule with minimal FDG avidity, consistent with postinfectious in etiology. Routine follow-up with chest CT may be helpful if indicated. Chest wo Chest wo EXAM: CT CHEST WITHOUT CONTRAST 01/01 - [facility] contrast CT contrast - [place] This report was dictated by a Inter Com Installer/Fellow. I have personally reviewed the images as well as the Resident's interpretation and agree with the findings. DATE: 01/01/2017 10:37 AM CDT Read by: Cirilo (FELLOW)Hadley MD Resident: Cirilo (FELLOW)Hadley MD Dictated Date/time: 01/01/17 11:08 Electronically Signed by: Haim Liao MD 01/01/17 15:44 FINAL REPORT INDICATION: - R93.8 Abnormal findings on diagnostic imaging of other specified body structures TECHNIQUE: Volumetric CT acquisition of the chest without contrast. Axial, sagittal and coronal reconstructions. Axial MIP images included. IV contrast: None. DLP: 117 mGy-cm COMPARISON: Noncontrast CT thorax performed 09/19/2016. DISCUSSION: Lines and Tubes: None. Lower Neck: The visible portions or the lower neck and thyroid are unremarkable. Heart, Mediastinum, and Great Vessels: Cardiothoracic ratio measures less than 0.5. Atherosclerotic disease is present in all 3 coronary arteries and in the aortic arch as well as the descending aorta. The ascending aorta measures 3.3 cm in diameter and the pulmonary trunk measures 2.3 cm in diameter. Both of these measurements are within normal limits Lymph Nodes: No hilar, mediastinal, axillary or internal mammary lymphadenopathy. Calcified right hilar lymph node is unchanged. Lungs and airways: Diffuse centrilobular emphysematous changes, with upper lobe predilection, are similar appearing to the prior exam. Calcified granuloma in the right upper lobe is unchanged. The linear density in the left upper lobe has decreased in size compared to the prior examination. However there there is a persistent 1.1 cm soft tissue density nodule with spiculated margins. A small amount of atelectasis versus scarring of the left upper lobe that extends from this nodule for the pleura in a wedge-shaped fashion. When viewed on the coronal images this nodule is less apparent and o n the coronal images demonstrates a linear morphology. There are also noncalcified solid nodules in the left lung base (series 2, image 179 and 202) that measure less than 4 mm in diameter. An additional noncalcified solid nodule is present in the right upper lobe) series 2, image 84. The nodules on image 179 is a new finding whereas the other nodules are unchanged. Pleura: No pleural effusion or pneumothorax. Esophagus and Upper abdomen: Hyperdense lesion measuring 9 mm in diameter in the superior pole of the left kidney (series 2, image 213) is unchanged from the prior examination. Also in the midpole gloria on of the left kidney there is a stable low-density 9 mm lesion (series 2, image 232) that may represent a simple cyst. These lesions can be better evaluated with either a renal ultrasound or even a contrast-enhanced computed tomography scan. Bones and Soft Tissues: Degenerative changes of the midthoracic spine are worse than on the prior exam. No discrete bony lesions are visualized however. IMPRESSION: 1. Interval decrease in size of the linear density in the left upper lobe. However there is a persistent residual nodule-like opacity in this region measuring 1.1 cm in size. While this may represent re sidual scarring or atelectasis, a neoplastic process cannot be excluded. Further evaluation with a PET/CT is recommended. Alternatively a 3 month follow- up with a noncontrast computed tomography scan can be performed. 2. Noncalcified nodules as described in the body of the report. One of these nodules in the left lower lobe is a new finding. Attention to these nodules on follow-up imaging is recommended. 3. Severe centrilobular emphysematous changes throughout both lungs with upper lobe predilection that is similar to the prior examination. 4. Prior granulomatous disease, unchanged. 5. Suboptimally evaluated lesions in the left kidney. Ultrasound and possibly contrast-enhanced computed tomography scan or magnetic resonance imaging can provide further evaluation if clinically warranted. Chest wo Chest wo EXAM: CT CHEST WITHOUT CONTRAST 09/19 - JAYLENE HUGGINS contrast CT contrast CT - [place] This report was dictated by a Inter Com Installer/Fellow. I have personally reviewed the images as well as the Resident's interpretation and agree with the findings. DATE: 09/19/2016 at 1038 hours Read by: Anthony Sanchez MD Resident: Anthony Sanchez MD Dictated Date/time: 09/19/16 11:07 Electronically Signed by: Jadon De Leon MD 09/19/16 15:08 FINAL REPORT INDICATION: - J44.9 Chronic obstructive pulmonary disease, unspecified TECHNIQUE: Volumetric CT acquisition of the chest without contrast. Axial, sagittal and coronal reconstructions. IV contrast: None. DLP: 137.84 mGy-cm COMPARISON: Chest radiograph 07/25/2016. FINDINGS: Lines and Tubes: None. Lower Neck: The visible portions or the lower neck and thyroid are unremarkable. Heart and Great Vessels: The heart size is normal. No pericardial effusions are seen. Coronary artery calcifications are seen in the left circumflex, left anterior descending, right coronary arteries. T he pulmonary trunk and thoracic aorta are normal in caliber. Specifically, the ascending thoracic aorta measures 33 mm and the main pulmonary trunk measures 27 mm. There are scattered atherosclerotic ca lcifications throughout the thoracic aorta, most prominent at the arch. Lymph Nodes: No hilar, mediastinal, axillary or internal mammary lymphadenopathy. Lungs: Moderate to severe emphysematous changes seen throughout the lungs , with an apical predilection. There is a linear soft tissue density in the left upper lobe, best seen on image 95 of series 301 B, possibly artist representative of atelectasis or scarring, though a mass cannot be definitively excluded. Tiny calcified granuloma in the right upper lobe, axial image 56. Pleura: No pleural effusion or pneumothorax. Upper abdomen: Unremarkable. Bones and Soft Tissues: Unremarkable. IMPRESSION: 1. Moderate to severe findings of emphysema in both lungs. 2. Linear soft tissue density in the left upper lobe, most likely some form of atelectasis or scarring, although a mass cannot be entirely excluded. Recommend close follow-up with contrast CT chest in 3 months to assess stability of the left upper lobe findings. Brain w/wo Brain w/wo EXAM: MRI BRAIN WITHOUT CONTRAST 08/22 - [facility] contrast contrast /2016 - Medical MRI This report was dictated by a Inter Com Installer/Fellow. I have personally reviewed the images as Center well as the Resident's interpretation and agree with the findings. DATE: 08/22/2016 9:00 AM CDT Read by: Hola Pedroza MD Resident: Hola Pedroza MD Dictated Date/time: 08/22/16 14:09 Electronically Signed by: Nettie Yu 08/23/16 13:45 FINAL REPORT INDICATION: Epilepsy COMPARISON: MRI brain 01/17/2016 and 11/26/2015.. TECHNIQUE: Multiplanar, multisequence MRI of the brain without contrast. IV contrast: None. FINDINGS: Expected signal changes are seen in the left mesial temporal lobe from prior thermal ablation. Volume loss in the left limb of the fornix and left mamillary body. There is unchanged appearance of enceph alomalacia involving the left posterior hippocampus extending into the occipital lobe. There is also unchanged encephalomalacia in the right BARREL INSPECTOR distribution. Additional sites of gliosis in both castanon radiata are unchanged. No restricted diffusion. No mass or mass effect, hydrocephalus, or extraaxial collection. No right hippocampal sclerosis. There is increased DIR and T2 signal in the cortex of the right superior temporal gyrus (series 403 image 147), hypointense on the T1-weighted images. Multiple scattered T2 FLAIR hyperintense foci within the white matter of both centrum semiovale are nonspecific, possible chronic small vessel ischemic change. Larger intracranial vascular flow voids are preserved. There is diffuse volume loss with passive dilatation of the ventricles. Paranasal sinuses and mastoid air cells are clear. The signal intensity of the central skull base bone marrow is heterogeneous, there was no cortical destruction or aggressive appearance on CT from 11/17/2015. No pathologic enhancement is identified. IMPRESSION: 1. Expected signal changes of prior left hippocampal thermal ablation. 2. Negative for right hippocampal sclerosis. 3. Unchanged multifocal sites of encephalomalacia. 4. Nonspecific hyperintense focus in the cortex of the right superior temporal gyrus (series 403 image 147), may represent small additional site of gliosis. CARDIAC Troponin-I null 0.00 - 07/25 [facility] ENZYMES 0.40 [facility] CARDIAC CK MB Index 1.5 0.0 - 2.5 07/25 [facility] ENZYMES [facility] CARDIAC CK MB 2.2 ng/mL 0.5 - 3.6 07/25 [facility] CARDIAC Total CK 145 unit/L 12 - 191 07/25 [facility] CHEM PANEL Phosphorus 3.8 mg/dL 2.5 - 4.5 07/25 [facility] CHEM PANEL Magnesium 2.0 mg/dL 1.8 - 2.4 07/25 [facility] Lvl [facility] CHEM PANEL eGFR 91 07/25 Result Comment: The eGFR is calculated using the CKD-EPI formula. In most young, healthy individuals the eGFR will be >90 mL/ min/1.73m2. The eGFR declines with age. An eGFR of 60-89 may be normal in [facility] mL/min/1.7 some populations, particularly the elderly, for whom the CKD-EPI formula has not been extensively validated. Use of the eGFR is not recommended in the following populations: [address] Individuals with unstable creatinine concentrations, including patients and those with serious co-morbid conditions. Patients with extremes in muscle mass or diet. The data above are obtained from the National Kidney Disease Education Program (NKDEP) which additionally recommends that when the eGFR is used in patients with extremes of body mass index for purposes of drug dosing, the eGFR should be multiplied by the estimated BMI. CHEM PANEL Sodium Lvl 140 meq/L 135 - 145 07/25 [facility] CHEM PANEL Glucose Lvl 90 mg/dL 70 - 99 07/25 [facility] CHEM PANEL Potassium 4.3 meq/L 3.5 - 5.1 07/25 [facility] Lvl [facility] CHEM PANEL Chloride Lvl 105 meq/L 95 - 109 07/25 [facility] CHEM PANEL CO2 28 meq/L 24 - 32 07/25 [facility] CHEM PANEL Creatinine 0.72 mg/dL 0.50 - 07/25 [facility] Lvl 1.40 [facility] CHEM PANEL BUN 7 mg/dL 7 - 22 07/25 [facility] CHEM PANEL AGAP 11.3 meq/L 10.0 - 07/25 [place] 20.0 [facility] CHEM PANEL Calcium Lvl 8.7 mg/dL 8.5 - 10.5 07/25 [facility] HEMATOLOGY Basophils # 0.1 K/CMM 0.0 - 0.2 07/25 [facility] HEMATOLOGY Eosinophils 0.1 K/CMM 0.0 - 0.5 07/25 # /2016 [facility] HEMATOLOGY Monocytes # 0.6 K/CMM 0.0 - 0.8 07/25 [facility] HEMATOLOGY Basophils 0.8 % 0.0 - 1.0 07/25 [facility] HEMATOLOGY Segs-Bands # 3.7 K/CMM 1.5 - 8.1 07/25 [facility] HEMATOLOGY Lymphocytes 1.5 K/CMM 1.0 - 5.5 07/25 [facility] HEMATOLOGY Lymphocytes 25.1 % 20.0 - 07/25 40.0 [facility] HEMATOLOGY Monocytes 10.7 % 2.0 - 12.0 07/25 [facility] HEMATOLOGY Eosinophils 0.9 % 0.0 - 4.0 07/25 [facility] HEMATOLOGY Segs 62.5 % 45.0 - 07/25 75.0 [facility] HEMATOLOGY Hgb 14.7 g/dL 12.0 - 07/25 16.0 [facility] HEMATOLOGY Hct 44.1 % 36.0 - 07/25 48.0 [facility] HEMATOLOGY RBC 4.58 M/CMM 4.20 - 07/25 5.40 [facility] HEMATOLOGY WBC 6.0 K/CMM 3.7 - 10.4 07/25 [facility] HEMATOLOGY MPV 7.5 fL 7.4 - 10.4 07/25 [facility] HEMATOLOGY RDW 13.6 % 11.5 - 07/25 14.5 [facility] HEMATOLOGY Platelet 144 K/CMM 133 - 450 07/25 [facility] HEMATOLOGY MCH 32.1 pg 27.0 - 07/25 31.0 [facility] HEMATOLOGY MCHC 33.4 g/dL 32.0 - 07/25 36.0 [facility] HEMATOLOGY MCV 96.1 fL 80.0 - 07/25 [facility] 98.0 [facility] CARDIAC Troponin-I null 0.00 - 07/25 [facility] ENZYMES 0.40 [facility] CHEM PANEL eGFR 84 07/25 Result Comment: The eGFR is calculated using the CKD-EPI formula. In most young, healthy individuals the eGFR will be >90 mL/ min/1.73m2. The eGFR declines with age. An eGFR of 60-89 may be normal in [facility] mL/min/1.7 some populations, particularly the elderly, for whom the CKD-EPI formula has not been extensively validated. Use of the eGFR is not recommended in the following populations: [address] Individuals with unstable creatinine concentrations, including patients and those with serious co-morbid conditions. Patients with extremes in muscle mass or diet. The data above are obtained from the National Kidney Disease Education Program (NKDEP) which additionally recommends that when the eGFR is used in patients with extremes of body mass index for purposes of drug dosing, the eGFR should be multiplied by the estimated BMI. CHEM PANEL BUN 8 mg/dL 7 - 22 07/25 [facility] CHEM PANEL Glucose Lvl 133 mg/dL 70 - 99 07/25 [facility] CHEM PANEL Calcium Lvl 9.2 mg/dL 8.5 - 10.5 07/25 [facility] CHEM PANEL CO2 29 meq/L 24 - 32 07/25 [facility] CHEM PANEL Creatinine 0.77 mg/dL 0.50 - 07/25 [facility] Lvl 1.40 [facility] CHEM PANEL Sodium Lvl 144 meq/L 135 - 145 07/25 [facility] CHEM PANEL Chloride Lvl 105 meq/L 95 - 109 07/25 [facility] CHEM PANEL Potassium 3.8 meq/L 3.5 - 5.1 07/25 [facility] CHEM PANEL AGAP 13.8 meq/L 10.0 - 07/25 20.0 [facility] HEMATOLOGY MCHC 33.4 g/dL 32.0 - 07/25 36.0 [facility] HEMATOLOGY MCV 96.9 fL 80.0 - 07/25 [facility] 98.0 [facility] HEMATOLOGY MCH 32.3 pg 27.0 - 07/25 31.0 [facility] HEMATOLOGY Hct 46.9 % 36.0 - 07/25 [facility] 48.0 [facility] HEMATOLOGY Hgb 15.6 g/dL 12.0 - 07/25 16.0 [facility] HEMATOLOGY MPV 8.1 fL 7.4 - 10.4 07/25 2016 [facility] HEMATOLOGY Platelet 163 K/CMM 133 - 450 07/25 2016 [facility] HEMATOLOGY RDW 13.7 % 11.5 - 07/25 14.5 [facility] HEMATOLOGY RBC 4.83 M/CMM 4.20 - 07/25 [facility] 5.40 /2016 [facility] HEMATOLOGY WBC 5.8 K/CMM 3.7 - 10.4 07/[address] HEMATOLOGY Eosinophils 0.1 K/CMM 0.0 - 0.5 07/25 [facility] HEMATOLOGY Monocytes # 0.6 K/CMM 0.0 - 0.8 07/25 [facility] HEMATOLOGY Lymphocytes 1.3 K/CMM 1.0 - 5.5 07/25 [facility] HEMATOLOGY Segs-Bands # 3.8 K/CMM 1.5 - 8.1 07/[address] [place] [address] HEMATOLOGY Basophils 0.7 % 0.0 - 1.0 07/[address] [place] [address] HEMATOLOGY Eosinophils 1.3 % 0.0 - 4.0 07/25 [facility] HEMATOLOGY Monocytes 10.9 % 2.0 - 12.0 07/[address] HEMATOLOGY Lymphocytes 22.2 % 20.0 - 07/25 40.0 [facility] HEMATOLOGY Segs 64.9 % 45.0 - 07/25 [facility] 75.0 [facility] Chest 1view Chest 1view EXAM: XR CHEST 1 VIEW 07/25 - [facility] DX DX - [facility] DATE: 07/25/2016 11:55 AM CDT Read by: Magali Richter MD Dictated Date/time: 07/25/16 12:31 Electronically Signed by: Magali Richter MD 07/25/16 12:36 FINAL REPORT INDICATION: shortness of breath, COPD - shortness of breath, COPD COMPARISON: None TECHNIQUE: AP chest, 2 images FINDINGS: Lines and tubes: None. Lungs and pleura: The lungs are hyperinflated with apical bulla bilaterally. No focal pulmonary parenchymal opacities are seen. Heart and mediastinum: The heart size is normal for technique. The mediastinal contours are normal. The main pulmonary artery is convex which may indicate underlying pulmonary arterial hypertension. Ex tensive atherosclerosis is seen in the aortic arch. Bones: No acute bony abnormality is identified. IMPRESSION: 1. Pulmonary emphysema. 2. Possible pulmonary arterial hypertension. 3. Aortic atherosclerosis. BLOOD BANK ABO/Rh A POS 01/16 [facility] RESULTS /2015 [facility] BLOOD BANK Antibody Negative 01/16 [facility] RESULTS [facility] (01/17/16 6:23 AM) [facility] CHEM PANEL eGFR 95 01/16 Result Comment: The eGFR is calculated using the CKD-EPI formula. In most young, healthy individuals the eGFR will be >90 mL/ min/1.73m2. The eGFR declines with age. An eGFR of 60-89 may be normal in [facility] mL/min/1. some populations, particularly the elderly, for whom the CKD-EPI formula has not been extensively validated. Use of the eGFR is not recommended in the following populations: [address] Individuals with unstable creatinine concentrations, including patients and those with serious co-morbid conditions. Patients with extremes in muscle mass or diet. The data above are obtained from the National Kidney Disease Education Program (NKDEP) which additionally recommends that when the eGFR is used in patients with extremes of body mass index for purposes of drug dosing, the eGFR should be multiplied by the estimated BMI. CHEM PANEL Calcium Lvl 8.3 mg/dL 8.5 - 10.5 01/16 [facility] CHEM PANEL CO2 27 meq/L 24 - 32 01/16 [facility] CHEM PANEL Chloride Lvl 111 meq/L 95 - 109 01/16 [facility] CHEM PANEL Bili Total 0.3 mg/dL 0.2 - 1.3 01/16 [facility] CHEM PANEL Potassium 3.5 meq/L 3.5 - 5.1 01/16 [facility] Lvl /2015 [facility] CHEM PANEL BUN 11 mg/dL 7 - 22 01/16 [facility] CHEM PANEL Sodium Lvl 143 meq/L 135 - 145 01/16 [facility] CHEM PANEL Creatinine 0.68 mg/dL 0.50 - 01/16 [facility] Lvl 1.40 [facility] CHEM PANEL Alk Phos 72 unit/L 39 - 136 01/16 [facility] CHEM PANEL AST 13 unit/L 0 - 37 01/16 [facility] CHEM PANEL ALT 19 unit/L 0 - 65 01/16 [facility] CHEM PANEL Albumin Lvl 3.7 g/dL 3.5 - 5.0 01/16 [facility] CHEM PANEL Total 6.5 g/dL 6.4 - 8.4 01/16 [facility] CHEM PANEL Glucose Lvl 99 mg/dL 70 - 99 01/16 [facility] CHEM PANEL A/G Ratio 1.3 0.7 - 1.6 01/16 [facility] CHEM PANEL Globulin 2.8 g/dL 2.7 - 4.2 01/16 [facility] CHEM PANEL AGAP 8.5 meq/L 10.0 - 01/16 [place] 20.0 /2015 [facility] CHEM PANEL B/C Ratio 16 6 - 25 01/16 [facility] HEMATOLOGY Monocytes # 0.5 K/CMM 0.0 - 0.8 01/16 [facility] HEMATOLOGY Eosinophils 0.1 K/CMM 0.0 - 0.5 01/16 [facility] HEMATOLOGY Lymphocytes 1.5 K/CMM 1.0 - 5.5 01/16 [facility] HEMATOLOGY Monocytes 8.6 % 2.0 - 12.0 01/16 [facility] HEMATOLOGY Eosinophils 1.3 % 0.0 - 4.0 01/16 [facility] HEMATOLOGY Basophils 0.3 % 0.0 - 1.0 01/16 [facility] HEMATOLOGY Segs-Bands # 3.4 K/CMM 1.5 - 8.1 01/16 [facility] HEMATOLOGY Lymphocytes 28.2 % 20.0 - 10 [place] 40.0 /2016 [facility] HEMATOLOGY Segs 61.6 % 45.0 - 10 [place] 75.0 /2016 [facility] HEMATOLOGY PTT 25.2 s 22.9 - 01/16 [place] 35.8 /2016 [facility] HEMATOLOGY INR 0.96 0.85 - 01/16 [place] 1.17 /2015 [facility] HEMATOLOGY PT 13.0 s 12.0 - 01/16 [place] 14.7 /2016 [facility] HEMATOLOGY MPV 10.0 fL 7.4 - 10.4 01/16 [facility] HEMATOLOGY Hct 41.6 % 36.0 - 01/16 [place] 48.0 [facility] HEMATOLOGY Hgb 13.9 g/dL 12.0 - 01/16 [place] 16.0 [facility] HEMATOLOGY MCV 97.0 fL 80.0 - 01/16 98.0 [facility] HEMATOLOGY RBC 4.28 M/CMM 4.20 - 01/16 [facility] 5.40 [facility] HEMATOLOGY WBC 5.5 K/CMM 3.7 - 10.4 01/16 [facility] HEMATOLOGY Platelet 141 K/CMM 133 - 450 01/16 [facility] HEMATOLOGY RDW 13.4 % 11.5 - 01/16 [facility] 14. [facility] HEMATOLOGY MCHC 33.5 g/dL 32.0 - 01/16 [facility] 36.0 [facility] HEMATOLOGY MCH 32.5 pg 27.0 - 01/16 [facility] 31.0 [facility] Brain w/wo Brain w/wo EXAM: MRI BRAIN WITH AND WITHOUT CONTRAST 01/16 [facility] contrast contrast MRI /2015 - [facility] DATE: 01/17/2016 11:29 AM CDT Read by: Nettie Yu Dictated Date/time: 01/18/16 10:16 Electronically Signed by: Nettie Yu 01/18/16 10:27 FINAL REPORT INDICATION: Seizures ADDITIONAL DATA: The patient was admitted on 01/16 for elective visualase ablation. COMPARISON: Brain CT dated 01/17/2016. Brain MRI dated 11/26/2015. TECHNIQUE: Multiplanar, multisequence non-contrast MRI images of the brain. Multiplanar imaging is subsequently obtained following intravenous gadolinium contrast. IV contrast: 15 mL MultiHance FINDINGS: A probe entering in the left occipital region, traversing the hippocampus and terminating in the left amygdala is identified. Image guidance was provided during thermal ablation of the left temporal lobe. Postprocedural images demonstrate an area of low T1 signal with peripheral contrast enhancement, consistent with necrosis spanning the hippocampus and amygdala in the anterior two thirds of the probe. Diffusion-weighted images demonstrate restricted diffusion in the same area. Encephalomalacia in the medial occipital and posterior temporal lobes on the left side is again demonstrated. IMPRESSION: Expected findings following thermal ablation of the medial anterior left temporal lobe. Brain w Brain w Examination: CT head with contrast 01/16 - [facility] contrast CT contrast CT /2015 - [facility] DATE: 01/17/2016 Read by: Barron Lim MD Dictated Date/time: 01/17/16 10:31 Electronically Signed by: Barron Lim MD 01/17/16 10:37 FINAL REPORT INDICATION: Epilepsy FINDINGS: High-resolution axial images of the head are obtained following intravenous menstruation of 100 mL Visipaque 320 contrast material. A stereotactic frame is in place for surgical localization. Multiplanar reformatted images are generated. Comparison is made to a CT study dated and and magnetic resonance imaging study dated 11/26/2015 The stereotactic frame is in good position and anchor screws are unremarkable in appearance. The brain is unchanged in appearance. There is a moderate degree of global volume loss. Focal areas of encephalomalacia are present in the right parieto- occipital junction and in the right frontal white matter There is opacification of normal appearing arterial and venous systems. IMPRESSION: Images adequate for stereotactic localization. BLOOD BANK ABO/Rh A POS 12/16 [facility] RESULTS [facility] BLOOD BANK Antibody Negative 12/16 [facility] RESULTS [facility] (12/17/15 6:41 AM) [facility] CHEM PANEL eGFR 98 12/16 Result Comment: The eGFR is calculated using the CKD-EPI formula. In most young, healthy individuals the eGFR will be >90 mL/ min/1.73m2. The eGFR declines with age. An eGFR of 60-89 may be normal in [facility] mL/min/1. some populations, particularly the elderly, for whom the CKD-EPI formula has not been extensively validated. Use of the eGFR is not recommended in the following populations: [address] Individuals with unstable creatinine concentrations, including patients and those with serious co-morbid conditions. Patients with extremes in muscle mass or diet. The data above are obtained from the National Kidney Disease Education Program (NKDEP) which additionally recommends that when the eGFR is used in patients with extremes of body mass index for purposes of drug dosing, the eGFR should be multiplied by the estimated BMI. CHEM PANEL CO2 30 meq/L 24 - 32 12/16 [facility] /2015 [facility] CHEM PANEL Calcium Lvl 8.6 mg/dL 8.5 - 10.5 12/16 [facility] CHEM PANEL Chloride Lvl 104 meq/L 95 - 109 12/[address] CHEM PANEL BUN 14 mg/dL 7 - 22 12/16 [facility] [address] [place] [address] CHEM PANEL Glucose Lvl 97 mg/dL 70 - 99 12/[address] CHEM PANEL Creatinine 0.62 mg/dL 0.50 - 12/16 [facility] Lvl 1.40 /2015 [facility] CHEM PANEL Sodium Lvl 143 meq/L 135 - 145 12/[address] CHEM PANEL Potassium 3.9 meq/L 3.5 - 5.1 12/16 [facility] CHEM PANEL AGAP 12.9 meq/L 10.0 - 12/16 [facility] 20.0 [facility] HEMATOLOGY Segs-Bands # 5.4 K/CMM 1.5 - 8.1 12/[address] HEMATOLOGY Lymphocytes 1.6 K/CMM 1.0 - 5.5 12/16 [facility] HEMATOLOGY Basophils 0.3 % 0.0 - 1.0 12/16 [facility] [address] [place] [address] HEMATOLOGY Monocytes # 0.9 K/CMM 0.0 - 0.8 12/[address] HEMATOLOGY Eosinophils 1.0 % 0.0 - 4.0 12/16 [facility] [address] [place] [address] HEMATOLOGY Eosinophils 0.1 K/CMM 0.0 - 0.5 12/16 [facility] [address] [place] [address] HEMATOLOGY Segs 67.3 % 45.0 - 12/16 [facility] 75.0 [facility] HEMATOLOGY Lymphocytes 20.4 % 20.0 - 12/16 [facility] 40.0 [facility] HEMATOLOGY Monocytes 11.0 % 2.0 - 12.0 12/[address] HEMATOLOGY TEG Interp Thrombelas 12/16 [facility] tograph [facility] show shortened value of R. This finding is suggestive of enzymatic hypercoagu lation.CPT :[id number] HEMATOLOGY Ly30 0.0 % 0.0 - 7.5 12/16 [facility] [address] [place] [address] HEMATOLOGY G-value 7.3 K d/sc 4.5 - 11.0 12/[address] HEMATOLOGY Coag Index 0.8 -3.0-3.0 - 12/16 3.0 [facility] HEMATOLOGY Max Amp 59.4 mm 50.0 - 12/16 [place] 70.0 /2015 [facility] HEMATOLOGY R-time 4.2 min 5.0 - 10.0 12/16 [facility] HEMATOLOGY K-time 2.1 min 1.0 - 3.0 12/16 [facility] HEMATOLOGY Angle 63.0 53.0 - 12/16 [facility] degrees 72.0 [facility] HEMATOLOGY TEG Data See Note 12/16 [facility] (12/17/15 6:41 AM) [facility] HEMATOLOGY RDW 13.4 % 11.5 - 12/16 [facility] 14.5 [facility] HEMATOLOGY MCHC 33.5 g/dL 32.0 - 12/16 [facility] 36.0 [facility] HEMATOLOGY MPV 8.2 fL 7.4 - 10.4 12/16 [facility] HEMATOLOGY Platelet 154 K/CMM 133 - 450 12/16 [facility] HEMATOLOGY MCH 32.2 pg 27.0 - 12/16 [place] 31.0 [facility] HEMATOLOGY MCV 96.0 fL 80.0 - 12/16 [place] 98.0 [facility] HEMATOLOGY Hct 46.0 % 36.0 - 12/16 [place] 48.0 [facility] HEMATOLOGY Hgb 15.4 g/dL 12.0 - 12/16 [place] 16.0 [facility] HEMATOLOGY RBC 4.79 M/CMM 4.20 - 12/16 5.40 /2015 [facility] HEMATOLOGY WBC 8.0 K/CMM 3.7 - 10.4 12/16 [facility] HEMATOLOGY INR 0.96 0.85 - 12/16 [place] 1.17 [facility] HEMATOLOGY PTT 22.9 s 22.9 - 12/16 [place] 35.8 [facility] HEMATOLOGY PT 13.1 s 12.0 - 12/16 [facility] 14.7 [facility] CHEM PANEL eGFR 103 12/12 Result Comment: The eGFR is calculated using the CKD-EPI formula. In most young, healthy individuals the eGFR will be >90 mL/ min/1.73m2. The eGFR declines with age. An eGFR of 60-89 may be normal in [facility] mL/min/1.7 /2016 some populations, particularly the elderly, for whom the CKD-EPI formula has not been extensively validated. Use of the eGFR is not recommended in the following populations: [address] Individuals with unstable creatinine concentrations, including patients and those with serious co-morbid conditions. Patients with extremes in muscle mass or diet. The data above are obtained from the National Kidney Disease Education Program (NKDEP) which additionally recommends that when the eGFR is used in patients with extremes of body mass index for purposes of drug dosing, the eGFR should be multiplied by the estimated BMI. CHEM PANEL BUN 11 mg/dL 7 - 22 12/12 [facility] CHEM PANEL Glucose Lvl 81 mg/dL 70 - 99 12/12 [facility] CHEM PANEL Creatinine 0.54 mg/dL 0.50 - 12/12 [facility] Lvl 1. [facility] CHEM PANEL Sodium Lvl 142 meq/L 135 - 145 12/12 [facility] CHEM PANEL CO2 25 meq/L 24 - 32 12/12 [facility] CHEM PANEL Chloride Lvl 111 meq/L 95 - 109 12/12 [facility] CHEM PANEL Potassium 4.2 meq/L 3.5 - 5.1 12/12 [facility] l [facility] CHEM PANEL AGAP 10.2 meq/L 10.0 - 12/12 . [facility] CHEM PANEL Calcium Lvl 7.0 mg/dL 8.5 - 10.5 12/12 Result Comment: [facility] Result(s) called to Robert Julian at 12/13/2015 19:21 by . Read back OK. HEMATOLOGY PTT 25.1 s 22.9 - 12/12 [place] 35.8 /2015 [facility] HEMATOLOGY PT 14.2 s 12.0 - 12/12 [place] 14.7 [facility] HEMATOLOGY INR 1.07 0.85 - 12/12 1.17 [facility] HEMATOLOGY WBC 6.0 K/CMM 3.7 - 10.4 12/12 [facility] HEMATOLOGY Hgb 12.7 g/dL 12.0 - 12/12 [place] 16.0 [facility] HEMATOLOGY RBC 3.96 M/CMM 4.20 - 12/12 [place] 5.40 [facility] HEMATOLOGY Hct 38.6 % 36.0 - 12/12 48.0 /2015 [facility] HEMATOLOGY MCH 32.1 pg 27.0 - 12/12 31.0 [facility] HEMATOLOGY MCHC 32.9 g/dL 32.0 - 12/12 [facility] 36.0 [facility] HEMATOLOGY MCV 97.6 fL 80.0 - 12/12 [facility] 98.0 [facility] HEMATOLOGY MPV 7.6 fL 7.4 - 10.4 12/12 /2015 [facility] HEMATOLOGY Platelet 109 K/CMM 133 - 450 12/12 [facility] HEMATOLOGY RDW 13.7 % 11.5 - 12/12 [facility] 14.5 [facility] HEMATOLOGY Lymphocytes 1.8 K/CMM 1.0 - 5.5 12/12 # /2015 [facility] HEMATOLOGY Eosinophils 0.5 % 0.0 - 4.0 12/12 [facility] HEMATOLOGY Segs-Bands # 3.5 K/CMM 1.5 - 8.1 12/12 [facility] HEMATOLOGY Monocytes # 0.7 K/CMM 0.0 - 0.8 12/12 [facility] HEMATOLOGY Basophils 0.5 % 0.0 - 1.0 12/12 [facility] HEMATOLOGY Monocytes 11.1 % 2.0 - 12.0 12/12 [facility] HEMATOLOGY Lymphocytes 30.2 % 20.0 - 12/12 40.0 [facility] HEMATOLOGY Segs 57.7 % 45.0 - 12/12 [facility] 75.0 [facility] Brain wo Brain wo EXAM: CT BRAIN WITHOUT CONTRAST 12/12 [facility] contrast CT contrast CT /2015 [facility] DATE: 12/13/2015 5:29 PM CDT Read by: Ira Morales MD Dictated Date/time: 12/14/15 14:22 Electronically Signed by: Ira Morales MD 12/14/15 14:28 FINAL REPORT INDICATION: Seizures COMPARISON: CT brain 12/13/2015 TECHNIQUE: Axial imaging of the brain was acquired from the vertex to the skull base at 1 mm thickness. Coronal and sagittal reformatted images were generated. IV Contrast: None DLP: 866mGy-cm FINDINGS: Status post deep electrode placement in both cerebral hemispheres. Trace postoperative pneumocephalus. No hemorrhage or edema along the electrode tracts. No discrete extra-axial hematoma. No hydrocephalus or midline shift. IMPRESSION: Expected postoperative changes following SEEG electrodes placement without complications. BLOOD BANK ABO/Rh A POS 12/12 [facility] RESULTS /2015 [facility] BLOOD BANK Antibody Negative 12/12 [facility] RESULTS Scrn [facility] (12/13/15 10:43 AM) [facility] CHEM PANEL eGFR 97 12/12 Result Comment: The eGFR is calculated using the CKD-EPI formula. In most young, healthy individuals the eGFR will be >90 mL/ min/1.73m2. The eGFR declines with age. An eGFR of 60-89 may be normal in [facility] mL/min/1.7 /2015 some populations, particularly the elderly, for whom the CKD-EPI formula has not been extensively validated. Use of the eGFR is not recommended in the following populations: [address] Individuals with unstable creatinine concentrations, including patients and those with serious co-morbid conditions. Patients with extremes in muscle mass or diet. The data above are obtained from the National Kidney Disease Education Program (NKDEP) which additionally recommends that when the eGFR is used in patients with extremes of body mass index for purposes of drug dosing, the eGFR should be multiplied by the estimated BMI. CHEM PANEL Calcium Lvl 8.0 mg/dL 8.5 - 10.5 12/12 [facility] CHEM PANEL CO2 27 meq/L 24 - 32 12/12 [facility] CHEM PANEL Chloride Lvl 108 meq/L 95 - 109 12/12 [facility] CHEM PANEL BUN 14 mg/dL 7 - 22 12/12 [facility] CHEM PANEL Creatinine 0.65 mg/dL 0.50 - 12/12 [facility] Lvl 1.40 [facility] CHEM PANEL Sodium Lvl 141 meq/L 135 - 145 12/12 [facility] CHEM PANEL Potassium 3.9 meq/L 3.5 - 5.1 12/12 [facility] Lvl [facility] CHEM PANEL Glucose Lvl 78 mg/dL 70 - 99 12/12 [facility] CHEM PANEL AGAP 9.9 meq/L 10.0 - 12/12 [place] 20.0 [facility] HEMATOLOGY Platelet 134 K/CMM 133 - 450 12/12 [facility] HEMATOLOGY RDW 13.6 % 11.5 - 12/12 14.5 /2015 [facility] HEMATOLOGY MPV 7.8 fL 7.4 - 10.4 12/12 [facility] HEMATOLOGY MCHC 33.4 g/dL 32.0 - 12/12 36.0 [facility] HEMATOLOGY WBC 5.9 K/CMM 3.7 - 10.4 12/12 [facility] HEMATOLOGY Hgb 15.1 g/dL 12.0 - 12/12 16.0 [facility] HEMATOLOGY RBC 4.69 M/CMM 4.20 - 12/12 5.40 /2015 [facility] HEMATOLOGY MCV 96.3 fL 80.0 - 12/12 98.0 [facility] HEMATOLOGY MCH 32.2 pg 27.0 - 12/12 31.0 [facility] HEMATOLOGY Hct 45.1 % 36.0 - 12/12 [place] 48.0 [facility] HEMATOLOGY Lymphocytes 1.7 K/CMM 1.0 - 5.5 12/12 [place] # /2015 [facility] HEMATOLOGY Monocytes # 0.8 K/CMM 0.0 - 0.8 12/12 [facility] HEMATOLOGY Basophils 0.4 % 0.0 - 1.0 12/12 [facility] HEMATOLOGY Monocytes 13.2 % 2.0 - 12.0 12/12 [facility] HEMATOLOGY Eosinophils 0.7 % 0.0 - 4.0 12/12 [facility] HEMATOLOGY Segs-Bands # 3.4 K/CMM 1.5 - 8.1 12/12 [facility] HEMATOLOGY Lymphocytes 28.4 % 20.0 - 12/12 [place] 40.0 [facility] HEMATOLOGY Segs 57.3 % 45.0 - 12/12 [place] 75.0 [facility] HEMATOLOGY INR 0.93 0.85 - 12/12 1.17 [facility] HEMATOLOGY PTT 24.5 s 22.9 - 12/12 35.8 [facility] HEMATOLOGY PT 12.8 s 12.0 - 12/12 [place] 14.7 [facility] Brain w Brain w EXAM: CT BRAIN WITH CONTRAST 12/12 [facility] contrast CT contrast CT /2015 - [facility] DATE: 12/13/2015 12:41 PM CDT Read by: Ira Morales MD Dictated Date/time: 12/13/15 14:48 Electronically Signed by: Ira Morales MD 12/13/15 14:51 FINAL REPORT INDICATION: preop planning COMPARISON: Magnetic resonance imaging 11/26/2015 TECHNIQUE: Following intravenous administration of contrast, axial imaging of the brain was acquired from the vertex to the skull base at 1 mm thickness. Coronal and sagittal reformatted images were generated. IV Contrast: 100 mL Omnipaque 350 DLP: 1211mGy-cm FINDINGS: No acute hemorrhage, hydrocephalus or midline shift. Gliotic changes in bilateral BARREL INSPECTOR territories right greater than left. No mass or abnormal enhancement. IMPRESSION: [facility] protocol for treatment planning. CHEM PANEL eGFR 80 11/25 Result Comment: The eGFR is calculated using the CKD-EPI formula. In most young, healthy individuals the eGFR will be >90 mL/ min/1.73m2. The eGFR declines with age. An eGFR of 60-89 may be normal in [facility] mL/min/1.7 some populations, particularly the elderly, for whom the CKD-EPI formula has not been extensively validated. Use of the eGFR is not recommended in the following populations: [address] Individuals with unstable creatinine concentrations, including patients and those with serious co-morbid conditions. Patients with extremes in muscle mass or diet. The data above are obtained from the National Kidney Disease Education Program (NKDEP) which additionally recommends that when the eGFR is used in patients with extremes of body mass index for purposes of drug dosing, the eGFR should be multiplied by the estimated BMI. CHEM PANEL POC 0.8 mg/dL 0.5 - 1.4 11/25 [facility] Creatinine /2015 [facility] Brain w Brain w Exam: MRI brain with contrast 11/25 - [facility] contrast contrast MRI /2015 - [facility] INDICATION: Refractory epilepsy Read by: Nickolas Gomez MD Dictated Date/time: 11/26/15 17:13 Electronically Signed by: Nickolas Gomez MD 11/27/15 09:39 FINAL REPORT COMPARISON: None. TECHNIQUE: Axial 3-D CT with [facility] protocol T1-weighted postcontrast sequences of the brain are provided. FINDINGS: Encephalomalacia along the medial aspect of the inferior left temporal gyrus with suggestion of atrophy of the posterior aspect (posterior body and tail) of the left hippocampus. The amygdala are symmet wesley in size bilaterally. Evaluation of the mesial temporal lobes are not optimal due to lack of coronal oblique FLAIR and T1 sequences. Encephalomalacia in the left BARREL INSPECTOR territory is identified. Mild arnold bal brain volume loss with corresponding dilatation of the ventricles. No abnormal parenchymal or meningeal enhancement is identified. No parenchymal mass , mass effect or midline shift is present. No pathologic extra axial fluid is identified. IMPRESSION: 1. Encephalomalacia along the medial aspect of the inferior left temporal gyrus with suggestion of atrophy of the posterior aspect (posterior body and tail) of the left hippocampus. The amygdala are sym metric in size bilaterally. Evaluation of the mesial temporal lobes are not optimal due to lack of coronal oblique FLAIR and T1 sequences. 2. Encephalomalacia in the left BARREL INSPECTOR territory is identified. 3. No abnormal enhancing mass or lesion is identified. Images are adequate for operative purposes Vital Signs Vital Sign Value Date Comments Source Weight 39.545 10/08/2017 [facility] BMI Calculated 16.47 10/08/2017 [facility] Height 154.94 cm 10/08/2017 [facility] Systolic (mm Hg) 113 10/08/2017 [facility] Diastolic (mm Hg) 72 10/08/2017 [facility] Heart Rate 84 10/08/2017 [facility] Temperature Oral (F) 98.3 F 10/08/2017 [facility] BMI Calculated 16.85 08/09/2017 [facility] Weight 40.455 08/09/2017 [facility] Respitory Rate 16 08/09/2017 [facility] Height 154.94 cm 08/09/2017 [facility] Systolic (mm Hg) 131 08/09/2017 [facility] Diastolic (mm Hg) 81 08/09/2017 [facility] Heart Rate 86 08/09/2017 [facility] BMI Calculated 17.61 07/26/2017 [facility] Weight 42.273 07/26/2017 [facility] Height 154.94 cm 07/26/2017 [facility] Heart Rate 91 07/26/2017 [facility] Systolic (mm Hg) 128 07/26/2017 [facility] Diastolic (mm Hg) 82 07/26/2017 [facility] Temperature Oral (F) 98.4 F 07/26/2017 [facility] Respitory Rate 16 07/26/2017 [facility] Weight 41.364 06/05/2017 [facility] Respitory Rate 16 06/05/2017 [facility] Heart Rate 78 06/05/2017 [facility] Systolic (mm Hg) 110 06/05/2017 [facility] Diastolic (mm Hg) 67 06/05/2017 [facility] Systolic (mm Hg) 137 05/19/2017 [facility] Diastolic (mm Hg) 86 05/19/2017 [facility] Respitory Rate 22 05/19/2017 [facility] Systolic (mm Hg) 131 05/19/2017 [facility] Diastolic (mm Hg) 73 05/19/2017 [facility] Respitory Rate 22 05/19/2017 [facility] Respitory Rate 22 05/19/2017 [facility] Weight 41.818 05/19/2017 [facility] Height 154.94 cm 05/19/2017 [facility] BMI Calculated 17.42 05/19/2017 [facility] Heart Rate 96 05/19/2017 [facility] Temperature Oral (F) 98 F 05/19/2017 [facility] Systolic (mm Hg) 134 05/19/2017 [facility] Diastolic (mm Hg) 73 05/19/2017 [facility] Temperature Oral (F) 98.2 F 07/25/2016 [facility] Systolic (mm Hg) 145 07/25/2016 [facility] Diastolic (mm Hg) 80 07/25/2016 [facility] Respitory Rate 22 07/25/2016 [facility] Systolic (mm Hg) 103 07/25/2016 [facility] Diastolic (mm Hg) 86 07/25/2016 [facility] Respitory Rate 22 07/25/2016 [facility] Temperature Oral (F) 97.8 F 07/25/2016 [facility] Respitory Rate 20 07/25/2016 [facility] Systolic (mm Hg) 128 07/25/2016 [facility] Diastolic (mm Hg) 70 07/25/2016 [facility] Height 154.94 cm 07/25/2016 [facility] Temperature Oral (F) 98.2 F 07/25/2016 [facility] Heart Rate 112 07/25/2016 [facility] BMI Calculated 21.77 07/25/2016 [facility] Weight 52.273 07/25/2016 [facility] Respitory Rate 23 01/18/2016 [facility] Systolic (mm Hg) 111 01/18/2016 [facility] Diastolic (mm Hg) 59 01/18/2016 [facility] Weight 41.875 01/18/2016 [facility] Systolic (mm Hg) 112 01/18/2016 [facility] Diastolic (mm Hg) 66 01/18/2016 [facility] Respitory Rate 19 01/18/2016 [facility] Respitory Rate 19 01/18/2016 [facility] Systolic (mm Hg) 100 01/18/2016 [facility] Diastolic (mm Hg) 59 01/18/2016 [facility] Temperature Oral (F) 98.3 F 01/18/2016 [facility] Temperature Oral (F) 97.5 F 01/18/2016 [facility] Temperature Oral (F) 97.9 F 01/17/2016 [facility] Heart Rate 81 01/17/2016 [facility] Height 154.94 cm 01/10/2016 [facility] Weight 42.727 01/10/2016 [facility] BMI Calculated 17.8 01/10/2016 [facility] Respitory Rate 20 12/17/2015 [facility] Systolic (mm Hg) 112 12/17/2015 [facility] Diastolic (mm Hg) 74 12/17/2015 [facility] Respitory Rate 20 12/17/2015 [facility] Systolic (mm Hg) 129 12/17/2015 [facility] Diastolic (mm Hg) 67 12/17/2015 [facility] Respitory Rate 12 12/17/2015 [facility] Systolic (mm Hg) 121 12/17/2015 [facility] Diastolic (mm Hg) 69 12/17/2015 [facility] Temperature Oral (F) 98.3 F 12/17/2015 [facility] Heart Rate 95 12/17/2015 [facility] Temperature Oral (F) 98.6 F 12/17/2015 [facility] Heart Rate 86 12/17/2015 [facility] Heart Rate 83 12/17/2015 [facility] Temperature Oral (F) 97.9 F 12/17/2015 [facility] Height 157.48 cm 12/13/2015 [facility] BMI Calculated 17.6 12/13/2015 [facility] Weight 43.636 12/13/2015 [facility] Encounters Location Location Encounter Encounter Reason Attending ADM DC Status Source Details Type Number For Provider Date Date Visit [facility] [id number] Mathieu 06/08 06/09 [facility] Jordi Christopher /2015 [facility] Outpatient [id number] MATHIEU 08/01 [facility] [place] [facility] [id number] MATHIEU 09/[address] [facility] [address] Outpatient [id number] Mathieu 11/25 11/26 [facility] Jordi Christopher /2015 [facility] Outpatient [id number] MATHIEU 12/[address] [facility] [address] Inpatient [id number] Calin 12/12 12/16 [facility] Outpatient [id number] MATHIEU 12/27 [facility] [place] [facility] [id number] MATHIEU 01/[address] [facility] Inpatient [id number] Mathieu 01/16 01/17 [facility] Christopher /2015 [facility] Outpatient [id number] MATHIEU 01/24 [facility] Outpatient [id number] MATHIEU 03/[address] [facility] [address] [facility] Emergency [id number] Emilia 07/25 07/25 [facility] /2016 [facility] Outpatient [id number] MATHIEU 08/[address] [facility] [address] [facility] Outpatient [id number] Mathieu 08/22 08/23 [facility] Christopher [facility] Outpatient [id number] Mathieu 08/22 08/23 [facility] [id number] Steve 09/19 09/20 [facility] Outpt Diag [id number] Steve 01/01 01/02 [facility] Outpatient [id number] Steve 02/05 02/06 [facility] Emergency [id number] Josie 05/19 05/19 [facility] Outpatient [id number] HOLA 06/05 Active [facility] Outpatient [id number] Hola 06/05 06/06 Internal [facility] /2017 [facility] Ambulatory [id number] Hola 06/05 06/05 Internal Pre-Reg [facility] /2017 [facility] Outpatient [id number] 07/26 [facility] [place] [facility] Phone [id number] 07/26 07/28 Internal Message /2017 [facility] Outpatient [id number] 07/26 Internal [place] /2017 [facility] Phone [id number] 07/30 08/01 Internal Message /2017 [facility] Outpatient [id number] 08/09 [facility] [place] [facility] Outpatient [id number] 08/09 Internal [facility] Outpatient [id number] 09/03 Active [facility]DON [facility] Ambulatory [id number] 09/03 Internal Pre-Reg [facility] Outpatient [id number] BLANCA 10/08 Active [facility]ON [place] [facility] Outpatient [id number] Blanca 10/08 10/09 Internal [facility] Outpt Diag [id number] Blanca 10/08 10/09 [facility] [place] [facility]ordi [facility] Outpt Diag [id number] Steve 10/19 10/20 [facility] [place] [facility] [place] Procedures Procedure Code Date Perfomer Comments Source Placement of depth 637053062 12/13/2015 Bi-Lateral SEEG [place] electrode into Depth Placement Medical brain for with YOGI ROBOT Center electroencephalogr aphy<sup>1</sup> Placement of depth 169536082 12/13/2015 Bi-Lateral SEEG Medical electrode into Depth Placement Group brain for with YOGI ROBOT electroencephalogr aphy<sup>1</sup> Placement of depth 733970170 12/13/2015 Bi-Lateral SEEG [facility] electrode into Depth Placement [place] brain for with YOGI ROBOT electroencephalogr aphy<sup>1</sup> Placement of depth [id number] 12/13/2015 Bi-Lateral SEEG [facility] electrode into Depth Placement [place] brain for with YOGI MUNOZ electroencephalogr aphy<sup>1</sup> section [id number] [facility] Colonoscopy [id number] [facility] Knee arthroplasty [id number] [facility] Operation<sup>2</s [id number] basal cell [place] up> carcinoma Medical removed from Center right inner elbow Shoulder repair [id number] [facility] section [id number] [facility] Colonoscopy [id number] [facility] Epilepsy<sup>2</lewis [id number] 01/17/2016 Medical p> Group Knee arthroplasty [id number] [facility] Operation<sup>3</s [id number] basal cell Medical up> carcinoma Group removed from right inner elbow Shoulder repair [id number] [facility] section [id number] [facility] [place] Colonoscopy [id number] [facility]i Knee arthroplasty [id number] [facility] Jordi Operation<sup>2</s [id number] basal cell [facility] up> carcinoma Jordi removed from right inner elbow Shoulder repair [id number] [facility] [place] Epilepsy<sup>2</lewis [id number] 01/17/2016 [facility] p> [facility] Operation<sup>3</s [id number] basal cell [place] up> carcinoma Medical removed from Center right inner elbow Epilepsy<sup>2</lewis [id number] 01/17/2016 [facility] p> Jordi Operation<sup>3</s [id number] basal cell [facility] up> carcinoma Jordi removed from right inner elbow section [id number] OPID [place] Colonoscopy [id number] [facility] [place] Epilepsy<sup>2</lewis [id number] 01/17/2016 OPID p> [place] Knee arthroplasty [id number] OPID [place] Operation<sup>3</s [id number] basal cell OPID up> carcinoma [place] removed from right inner elbow Shoulder repair [id number] [facility] [place]
--- OUTSIDE RECORDS SUMMARY | 2017-10-24 12:45 | XMS REPORT | Summary of Care ---
:1955 Author Organization [facility] Address [address] [place], [place] [address]- Encounter HQ Jose_nara(FIN) [phone] Date(s): 02/05/17 - 02/05/[address] [address]- [place] Discharge Disposition: Home or Self Care Attending Physician: Steve Maguire MD Referring Physician: Steve Maguire MD Vital Signs No data available for this section Problem List Condition Effective Dates Status Health Status Informant Asthma(Confirmed) Active COPD(Confirmed) Active Hypertension(Confirmed) Resolved Seizures(Confirmed) Resolved Allergies, Adverse Reactions, Alerts Substance Reaction Severity Status NKDA Active Medications No data available for this section Results No data available for this section Immunizations Not Given Vaccine Date Status Refusal Reason influenza virus vaccine, inactivated 02/16/15 Not Given Patient Refuses pneumococcal 23-valent vaccine 02/16/15 Not Given Patient Refuses Procedures Procedure Date Related Diagnosis Body Site Placement of depth electrode into brain for 12/13/15 electroencephalography1 section Colonoscopy Knee arthroplasty Operation2 Shoulder repair 1Bi-Lateral SEEG Depth Placement with YOGI [id number] cell carcinoma removed from right inner elbow Social History Social History Type Response Alcohol Current, Type Wine. Frequency: 1-2 times per week. Previous treatment: None. Alcohol use interferes with work or home: No. Drinks more than intended: No. Others hurt by drinking: No. Ready to change: No. Smoking Status Current every day smoker; Type: Cigarettes; Tobacco use per day : 5; Number of years: 40; Previous treatment: weaning; Ready to change: Yes; Concerns about tobacco use in household: No; Exposure to Tobacco Smoke pt is a smoker; Cigarette Smoking Last 365 Days Yes; Reg Smoking Cessation Counseling Yes1 1pt [facility] and Plan No data available for this section
--- OUTSIDE RECORDS SUMMARY | 2017-10-24 12:45 | XMS REPORT | Summary of Care ---
:1955 Author Organization [facility] Address [address] [place], [place] [address]- Encounter HQ Manjeet(FIN) [id number] Date(s): 08/22/16 - 08/22/[address] [address]- [place] Discharge Disposition: Home or Self Care Attending Physician: Mathieu White MD Referring Physician: Mathieu White MD Vital Signs No data available for [...] repair 1Bi-Lateral SEEG Depth Placement with YOGI [id number] cell carcinoma removed from right inner elbow [...]
--- OUTSIDE RECORDS SUMMARY | 2017-10-24 12:45 | XMS REPORT | Summary of Care ---
:1955 Author Organization [facility] Outpatient Imaging [place] Address [address] [place], [place] [address]- Encounter HQ Martinentr_nara(FIN) [id number] Date(s): 01/01/17 - 01/01/17 [facility] [place] [address] [place] [address]- [phone] Discharge Disposition: Home or Self Care Attending Physician: Steve Maguire MD Vital Signs No [...] repair 1Bi-Lateral SEEG Depth Placement with YOGI [id number] cell carcinoma removed from right inner elbow [...] informed about Smoking Cessation Clinic at the [facility] Assessment and Plan No data available for this section
--- OUTSIDE RECORDS SUMMARY | 2017-10-24 12:45 | XMS REPORT | Summary of Care ---
:1955 Author Organization [facility] Address [address] [place], [place] [address]- Encounter HQ Manjeet(FIN) [phone] Date(s): 08/22/16 - 08/22/[address] [address]- [place] Discharge Disposition: Home or Self Care [...] repair 1Bi-Lateral SEEG Depth Placement with YOGI [id number] cell carcinoma removed from right inner elbow [...]
--- OUTSIDE RECORDS SUMMARY | 2017-10-24 12:45 | XMS REPORT | Summary of Care ---
:1955 Author Organization [facility] Outpatient [facility] [place] Address [address] [place], [place] [address]- Encounter HQ Martinentr_nara(FIN) [id number] Date(s): 09/19/16 - 09/19/16 [facility] [place] [address] [place] [address]- [phone] Discharge Disposition: Home or Self Care Attending [...] repair 1Bi-Lateral SEEG Depth Placement with YOGI [id number] cell carcinoma removed from right inner elbow [...] informed about Smoking Cessation Clinic at the [facility] Assessment and Plan No data available for this section
--- OUTSIDE RECORDS SUMMARY | 2017-10-24 12:46 | XMS REPORT | Summary of Care ---
:1955 Author Organization [facility] Outpatient Imaging [place] Address [address] [place] [address]- Encounter HQ Jose_nara(FIN) [id number] Date(s): 10/08/17 - 10/08/17 [facility] Outpatient Imaging [address] [address]- [phone] Discharge Disposition: Home or Self Care Attending Physician: Blanca Mckeon MD Vital Signs No data available for this section Problem List Condition Effective Dates Status Health Status Informant Asthma(Confirmed) Active COPD(Confirmed) Active Hypertension(Confirmed) Resolved Seizures(Confirmed) Resolved Allergies, Adverse Reactions, Alerts Substance Reaction Severity Status NKDA Active Medications No data available for this section Results No data available for this section Immunizations Not Given Vaccine Date Status Refusal Reason pneumococcal 23-valent vaccine 02/16/15 Not Given Patient Refuses influenza virus vaccine, inactivated 02/16/15 Not Given Patient Refuses Procedures Procedure Date Related Diagnosis Body Site Status Placement of depth electrode into brain 12/13/15 Completed for electroencephalography1 section Completed Colonoscopy Completed Epilepsy2 Completed Knee arthroplasty Completed Operation3 Completed Shoulder repair Completed 1Bi-Lateral SEEG Depth Placement with YOGI [id number] cell carcinoma removed from right inner elbow Social History Social History Type Response Substance Abuse Use: None. Exercise Exercise duration: 60. Exercise frequency: 5-6 times/week. Exercise type: Walking. Alcohol Past, Type Wine. Frequency: 1-2 times per week. Previous treatment: None. Alcohol use interferes with work or home: No. Drinks more than intended: No. Others hurt by drinking: No. Ready to change: No. Smoking Status Former smoker; Type: Cigarettes; Previous treatment: weaning; Ready to change: Yes; Concerns about tobacco use in household: No; Exposure to Tobacco Smoke pt is a smoker; Cigarette Smoking Last 365 Days Yes; Reg [facility] Cessation Counseling Yes; Tobacco use per day: 5; Number of years: 40; 1 , 2 entered on: 10/08/17 1Patient stopped smoking 3 weeks ago.2pt informed about Smoking Cessation Clinic at the [facility] Center Assessment and Plan No data available for this section
--- OUTSIDE RECORDS SUMMARY | 2017-10-24 12:46 | XMS REPORT | Summary of Care ---
:1955 Author Organization [facility] Internal Medicine [facility] Address [address] [place] [address], [facility] [address] [place] [address]- Encounter HQ Manjeet(DAVID) [id number] Date(s): 06/05/17 - 06/05/17 [facility] Internal Medicine [facility] [address] [facility] [place] [address] [place] [address]- Discharge Disposition: Home or Self Care Attending Physician: Bradley Awad MD Vital Signs Most recent to oldest [Reference Range]: 1 Blood Pressure [90-140/60-90 mmHg] 110/67 mmHg (06/05/17 10:10 AM) Respiratory Rate [14-20 BRMIN] 16 BRMIN (06/05/17 10:10 AM) Peripheral Pulse Rate [60-100 bpm] 78 bpm (06/05/17 10:10 AM) Weight 41.364 kg (06/05/17 10:10 AM) Problem List Condition Effective Dates Status Health Status Informant Asthma(Confirmed) Active COPD(Confirmed) Active Hypertension(Confirmed) Resolved Seizures(Confirmed) Resolved Allergies, Adverse Reactions, Alerts Substance Reaction Severity Status NKDA Active Medications aspirin 81 mg tablet, enteric coated 81 mg=1 tab, PO, Daily, # 90 tab, 3 Refill(s) Start Date: 06/05/17 Status: OrderedBreo Ellipta 100 mcg-25 mcg inhalation powder 1 puff, INHALATION, Daily, 0 Refill(s) Start Date: 06/05/17 Status: OrderedCaltrate 600+D Plus Minerals 1 tab, PO, BID, 0 Refill(s) Start Date: 06/05/17 Stop Date: 07/05/17 Status: OrderedclonazePAM 0.5 mg oral tablet See Instructions, 1/4 twice per day. 90day supply., 0 Refill(s) Start Date: 06/05/17 Stop Date: 07/26/17 Status: Discontinuedibuprofen 0 Refill(s) Start Date: 06/05/17 Status: OrderedlamoTRIgine 50 mg oral tablet, extended release 100 mg=2 tab, PO, Daily, 0 Refill(s) Start Date: 06/05/17 Stop Date: 07/26/17 Status: Discontinuedlisinopril 5 mg oral tablet 5 mg=1 tab, PO, Daily, 0 Refill(s) Start Date: 06/05/17 Stop Date: 07/26/17 Status: Deletedverapamil 120 mg oral tablet 120 mg=1 tab, PO, Daily, 0 Refill(s) Start Date: 06/05/17 Stop Date: 07/05/17 Status: Ordered Results No data available for this section [...] Completed 1Bi-Lateral SEEG Depth Placement with YOGI [id number] cell carcinoma removed from right inner elbow [...] Cigarette Smoking Last 365 Days Yes; Reg [facility]o [facility] Cessation Counseling Yes; Tobacco use per day: 5; Number of years: 40; 1 , 2 entered on: 08/09/17 1Patient stopped smoking 3 weeks ago.2pt informed about Smoking Cessation Clinic at the [facility] Assessment and Plan No data available for this section
--- OUTSIDE RECORDS SUMMARY | 2017-10-24 12:46 | XMS REPORT | Summary of Care ---
:1955 Author Organization [facility] Outpatient Imaging [place] Address [facility] [place], [place] [address]- Encounter HQ Hongr_nara(FIN) [id number] Date(s): 10/19/17 - 10/19/17 [facility] Outpatient Imaging [address], [address] [place] [address]- [phone] Discharge Disposition: Home or Self Care Attending [...] Completed 1Bi-Lateral SEEG Depth Placement with YOGI [id number] cell carcinoma removed from right inner elbow [...] informed about Smoking Cessation Clinic at the [facility] Center Assessment and Plan No data available for this section
--- OUTSIDE RECORDS SUMMARY | 2017-10-24 12:46 | XMS REPORT | Summary of Care ---
:1955 Author Organization [facility] Internal Medicine [facility] Address [address] [place] [address], [address] [place] [address]- Encounter HQ Manjeet(FIN) [id number] Date(s): 07/30/17 - 07/31/17 [facility] Internal Medicine [facility] [address] [facility] [place] [place], [place] [address]- [phone] Vital Signs No data available for this section Problem List Condition Effective Dates Status Health Status Informant Asthma(Confirmed) Active COPD(Confirmed) Active Hypertension(Confirmed) Resolved Seizures(Confirmed) Resolved Allergies, Adverse Reactions, Alerts Substance Reaction Severity Status NKDA Active Medications trazodone 50 mg oral tablet 50 mg=1 tab, PO, Bedtime, after meals with food. At least 1 hour prior to bedtime., # 30 tab, 2 Refill(s), Pharmacy: [facility] [id number] Start Date: 07/30/17 Status: Ordered Results No data available for [...] Completed 1Bi-Lateral SEEG Depth Placement with YOGI [id number] cell carcinoma removed from right inner elbow [...] years: 40; 1 , 2 entered on: 07/26/17 1Patient stopped smoking 3 weeks ago.2pt informed about Smoking Cessation Clinic at the [facility] Assessment and Plan No data available for this section
--- OUTSIDE RECORDS SUMMARY | 2017-10-24 12:46 | XMS REPORT | Summary of Care ---
:1955 Author Organization [facility] Internal Medicine [facility] Address [address] [place] [address], [address] [place] [address]- Encounter HQ Jose_nara(FIN) [id number] Date(s): 07/26/17 - 07/27/17 [facility] Internal Medicine [place] [address] [facility] [place], [place] [phone]- Vital Signs No data available for this [...] informed about Smoking Cessation Clinic at the [facility] Center Assessment and Plan No data available for this section
--- OUTSIDE RECORDS SUMMARY | 2017-10-24 12:46 | XMS REPORT | Summary of Care ---
:1955 Author Organization [facility] Internal Medicine [facility] Address [address] [place] [address] [address] [place] [address]- Encounter HQ Manjeet(FIN) [id number] Date(s): 10/08/17 - 10/08/17 [facility] Internal Medicine [facility] [address] [facility], [place] [place] [address]- Discharge Disposition: Home or Self Care Attending Physician: Blanca Mckeon MD Vital Signs Most recent to oldest [Reference Range]: 1 Height 154.94 cm (10/08/17 1:20 PM) Temperature Oral [96.4-99.1 DegF] 98.3 DegF (10/08/17 1:20 PM) Blood Pressure [90-140/60-90 mmHg] 113/72 mmHg (10/08/17 1:20 PM) Peripheral Pulse Rate [60-100 bpm] 84 bpm (10/08/17 1:20 PM) Weight 39.545 kg (10/08/17 1:20 PM) Body Mass Index 16.47 m2 (10/08/17 1:20 PM) Problem List Condition Effective Dates Status Health Status Informant Asthma(Confirmed) Active COPD(Confirmed) Active Hypertension(Confirmed) Resolved Seizures(Confirmed) Resolved Allergies, Adverse Reactions, Alerts Substance Reaction Severity Status NKDA Active Medications azithromycin 500 mg oral tablet 500 mg=1 tab, PO, Daily, X 5 day, # 5 tab, 0 Refill(s), Pharmacy: [facility] Start Date: 10/08/17 Stop Date: 10/13/17 Status: OrderedpredniSONE 20 mg oral tablet 40 mg=2 tab, PO, Daily, X 10 day, # 20 tab, 0 Refill(s), Pharmacy: [facility] Start Date: 10/08/17 Stop Date: 10/18/17 Status: Ordered Results HEMATOLOGY Most recent to oldest [Reference Range]: 1 WBC [3.8-10.8 K/CMM] 7.8 K/CMM 1 *N* (10/09/17 2:15 PM) RBC [3.80-5.10 M/CMM] 4.56 M/CMM *N* (10/09/17 2:15 PM) Hgb [11.7-15.5 g/dL] 14.1 g/dL *N* (10/09/17 2:15 PM) Hct [35.0-45.0 %] 41.9 % *N* (10/09/17 2:15 PM) MCV [80.0-100.0 fL] 91.9 fL *N* (10/09/17 2:15 PM) MCH [27.0-33.0 pg] 30.9 pg *N* (10/09/17 2:15 PM) MCHC [32.0-36.0 g/dL] 33.7 g/dL *N* (10/09/17 2:15 PM) RDW [11.0-15.0 %] 12.5 % *N* (10/09/17 2:15 PM) MPV [7.5-12.5 fL] 10.7 fL *N* (10/09/17 2:15 PM) Platelet [140-400 K/CMM] 199 K/CMM *N* (10/09/17 2:15 PM) Segs 56.5 % *N* (10/09/17 2:15 PM) Lymphocytes 35.6 % *N* (10/09/17 2:15 PM) Monocytes 6.8 % *N* (10/09/17 2:15 PM) Eosinophils 0.6 % *N* (10/09/17 2:15 PM) Basophils 0.5 % *N* (10/09/17 2:15 PM) Segs-Bands # [5737-3731 Cells/uL] 4407 Cells/uL *N* (10/09/17 2:15 PM) Lymphocytes # [850-3900 Cells/uL] 2777 Cells/uL *N* (10/09/17 2:15 PM) Monocytes # [200-950 Cells/uL] 530 Cells/uL *N* (10/09/17 2:15 PM) Eosinophils # [15-500 Cells/uL] 47 Cells/uL *N* (10/09/17 2:15 PM) Basophils # [0-200 Cells/uL] 39 Cells/uL *N* (10/09/17 2:15 PM) 1Result Comment: [facility]: [facility] [address] [place] [address] Inga Tripp Immunizations Not Given Vaccine Date Status Refusal Reason pneumococcal 23-valent vaccine 02/16/15 Not Given Patient Refuses influenza virus vaccine, inactivated 02/16/15 Not Given Patient Refuses Procedures Procedure Date Related Diagnosis Body Site Status Placement of depth electrode into brain 12/13/15 Completed for electroencephalography1 section Completed Colonoscopy Completed Epilepsy2 Completed Knee arthroplasty Completed Operation3 Completed Shoulder repair Completed 1Bi-Lateral SEEG Depth Placement with YOGI [id number] cell carcinoma removed from right inner elbow [...] informed about Smoking Cessation Clinic at the [facility] Assessment and Plan No data available for this section
--- OUTSIDE RECORDS SUMMARY | 2017-10-24 12:46 | XMS REPORT | Summary of Care ---
:1955 Author Organization [facility] Internal Medicine [facility] Address [address] [place] [address], [facility] [address] [place] [address]- Encounter HQ Jose_nara(FIN) [id number] Date(s): 09/03/17 - 09/03/17 [facility] Internal Medicine [facility] [address] [facility], [address] [place] [address]- Attending Physician: Bradley Awad MD Vital Signs No data available for [...] Completed 1Bi-Lateral SEEG Depth Placement with YOGI [id number] cell carcinoma removed from right inner elbow [...] Cigarette Smoking Last 365 Days Yes; Reg [facility] Cessation Counseling Yes; Tobacco use per day: 5; Number of years: 40; 1 , 2 entered on: 08/09/17 1Patient stopped smoking 3 weeks ago.2pt informed about Smoking Cessation Clinic at the [facility] Center Assessment and Plan No data available for this section
--- OUTSIDE RECORDS SUMMARY | 2017-10-24 12:46 | XMS REPORT | Summary of Care ---
:1955 Author Organization [facility] Internal Medicine [facility] Address [address] [place] [address], [facility] [address] [place] [address]- Encounter HQ Manjeet(DAVID) [id number] Date(s): 07/26/17 - 07/26/17 [facility] Internal Medicine [facility] [address] [facility] [place] [place] [address]- [phone] Discharge Disposition: Home or Self Care Attending Physician: Bradley Awad MD Vital Signs Most recent to oldest [Reference Range]: 1 Height 154.94 cm (07/26/17 3:31 PM) Temperature Oral [96.4-99.1 DegF] 98.4 DegF (07/26/17 3:31 PM) Blood Pressure [90-140/60-90 mmHg] 128/82 mmHg (07/26/17 3:31 PM) Respiratory Rate [14-20 BRMIN] 16 BRMIN (07/26/17 3:31 PM) Peripheral Pulse Rate [60-100 bpm] 91 bpm (07/26/17 3:31 PM) Weight 42.273 kg (07/26/17 3:31 PM) Body Mass Index 17.61 m2 (07/26/17 3:31 PM) Problem List Condition Effective Dates Status Health Status Informant Asthma(Confirmed) Active COPD(Confirmed) Active Hypertension(Confirmed) Resolved Seizures(Confirmed) Resolved Allergies, Adverse Reactions, Alerts Substance Reaction Severity Status NKDA Active Medications levETIRAcetam 500 mg oral tablet 1,000 mg=2 tab, PO, Daily, 0 Refill(s) Start Date: 07/26/17 Stop Date: 08/25/17 Status: Orderedlisinopril 10 mg oral tablet See Instructions, 1 tab PO Daily. TAKE 1/2 TAB DAILY., 0 Refill(s) Start Date: 07/26/17 Stop Date: 07/26/17 Status: Discontinuedlisinopril 10 mg oral tablet 10 mg=1 tab, PO, Daily, # 90 tab, 0 Refill(s), Pharmacy: [facility] Start Date: 07/26/17 Status: Orderedsertraline 50 mg oral tablet 50 mg=1 tab, PO, Daily, # 30 tab, 1 Refill(s) Start Date: 07/26/17 Status: Ordered Results No data available for [...] Completed 1Bi-Lateral SEEG Depth Placement with YOGI [id number] cell carcinoma removed from right inner elbow [...] Cigarette Smoking Last 365 Days Yes; Reg [facility] Cessation Counseling Yes; Tobacco use per day: 5; Number of years: 40; 1 , 2 entered on: 07/26/17 1Patient stopped smoking 3 weeks ago.2pt informed about Smoking Cessation Clinic at the [facility] Center Assessment and Plan No data available for this section
--- OUTSIDE RECORDS SUMMARY | 2017-10-24 12:46 | XMS REPORT | Summary of Care ---
:[address] [facility] Address [address] [place] [address]- Encounter HQ Jose_nara(FIN) [id number] Date(s): 05/19/17 - 05/19/17 [facility] [address] [place] [address] Professional Services provided by [facility] [place] [address]- Encounter Diagnosis Shortness of breath (Discharge Diagnosis) - 05/19/17 Shortness of breath (Final) - 05/24/17 Chronic obstructive pulmonary disease, unspecified (Final) - Essential (primary) hypertension (Final) - Discharge Disposition: Home or Self Care Attending Physician: Josie Briseno MD Vital Signs Most recent to oldest [Reference 1 2 3 Range]: Height 154.94 cm (05/19/17 2:20 PM) Temperature Oral [96.4-99.1 DegF] 98 DegF (05/19/17 2:20 PM) Blood Pressure [90-140/60-90 mmHg] 137/86 mmHg 131/73 mmHg 134/73 mmHg (05/19/17 5:00 PM) (05/19/17 4:00 PM) (05/19/17 2:20 PM) Respiratory Rate [14-20 BRMIN] 22 BRMIN 22 BRMIN 22 BRMIN *HI* *HI* *HI* (05/19/17 5:00 PM) (05/19/17 4:00 PM) (05/19/17 3:00 PM) Peripheral Pulse Rate [60-100 bpm] 96 bpm (05/19/17 2:20 PM) Weight 41.818 kg (05/19/17 2:20 PM) Body Mass Index 17.42 m2 (05/19/17 2:20 PM) Problem List Condition Effective Dates Status Health Status Informant Asthma(Confirmed) Active COPD(Confirmed) Active Hypertension(Confirmed) Resolved Seizures(Confirmed) Resolved Allergies, Adverse Reactions, Alerts Substance Reaction Severity Status NKDA Active Medications DuoNeb inhalation solution 6 mL, Route: NEB, Drug Form: SOLN, Dosing Weight 41.818, kg, ONCE, Start date: 05/19/17 15:01:00 CRNP, Stop date: 05/19/17 15:01:00 CRNP Notes: (Same as: Duoneb) Start Date: 05/19/17 Stop Date: 05/19/17 Status: CompletedValium 5 mg, 1 tab, Route: PO, Drug form: TAB, ONCE, Dosing Weight 41.818, kg, Priority : STAT, Start date: 05/19/17 15:02:00 CRNP, Stop date: 05/19/17 15:02:00 CRNP Notes: (Same as: Valium) Start Date: 05/19/17 Stop Date: 05/19/17 Status: Completed Results No data available for this section [...] Completed 1Bi-Lateral SEEG Depth Placement with YOGI [id number] cell carcinoma removed from right inner elbow [...] informed about Smoking Cessation Clinic at the [facility] Assessment and Plan No data available for this section
--- OUTSIDE RECORDS SUMMARY | 2017-10-24 12:46 | XMS REPORT | Summary of Care ---
:1955 Author Organization [facility] Internal Medicine [facility] Address [address] [place] [address], [facility] [address] [place] [address]- Encounter HQ Jose_nara(FIN) [id number] Date(s): 06/05/17 - 06/05/17 [facility] Internal [place] [address] [facility], [address] [place], [place] [id number]- Attending Physician: Bradley Awad MD Vital Signs [...] Completed 1Bi-Lateral SEEG Depth Placement with YOGI [id number] cell carcinoma removed from right inner elbow [...] Cigarette Smoking Last 365 Days Yes; Reg [facility] Cessation Counseling Yes; Tobacco use per day: 5; Number of years: 40; 1 , 2 entered on: 08/09/17 1Patient stopped smoking 3 weeks ago.2pt informed about Smoking Cessation Clinic at the [facility] Assessment and Plan No data available for this section
--- OUTSIDE RECORDS SUMMARY | 2017-10-24 12:46 | XMS REPORT | Summary of Care ---
:1955 Author Organization [facility] Address [address], [place] [address]- Encounter HQ Manjeet(FIN) [id number] Date(s): 11/26/15 - 11/26/15 [facility] [address] [place] [address]- [place] Discharge Disposition: Home or Self Care Attending Physician: Mathieu White MD Referring Physician: Mathieu White MD Vital Signs No data available for this section Problem List Condition Effective Dates Status Health Status Informant Asthma(Confirmed) Active COPD(Confirmed) Active Hypertension(Confirmed) Resolved Seizures(Confirmed) Resolved Allergies, Adverse Reactions, Alerts Substance Reaction Severity Status NKDA Active Medications No data available for this section Results CHEM PANEL Most recent to oldest [Reference Range]: 1 eGFR 80 mL/min/1.73m2 1 *NA* (11/26/15 3:35 PM) POC Creatinine [0.5-1.4 mg/dL] 0.8 mg/dL (11/26/15 3:35 PM) 1Result Comment: The eGFR is calculated using the CKD-EPI formula. In most young , healthy individualsthe eGFR will be >90 mL/min/1.73m2. The eGFR declines with age. An eGFR of 60-89 may be normal in some populations, particularly the elderly, for whom the CKD-EPI formula has not been extensively validated. Use of the eGFR is not recommended in the following populations: Individuals with unstable creatinine concentrations, including patients and those with serious co-morbid conditions. Patients with extremes in muscle mass or diet. The data above are obtained from the National Kidney Disease Education Program ( NKDEP) which additionally recommends that when the eGFR is used in patients with extremes of body mass index for purposesof drug dosing, the eGFR should be multiplied by the estimated BMI. Immunizations Not Given Vaccine Date Status Refusal Reason influenza virus vaccine, inactivated 02/16/15 Not Given Patient Refuses pneumococcal 23-valent vaccine 02/16/15 Not Given Patient Refuses Procedures Procedure Date Related Diagnosis Body Site section Colonoscopy Knee arthroplasty Shoulder repair Social History Social History Type Response Alcohol Current, Type Wine. Frequency: 1-2 times per week. Previous treatment: None. Alcohol use interferes with work or home: No. Drinks more than intended: No. Others hurt by drinking: No. Ready to change: No. Smoking Status Current every day smoker; Type: Cigarettes; Tobacco use per day : 1; Previous treatment: None; Ready to change: Yes; Concerns about tobacco use in household: No; Exposure to Tobacco Smoke pt is a smoker; Cigarette Smoking Last 365 Days No; Reg Smoking Cessation Counseling No Assessment and Plan No data available for this section
--- OUTSIDE RECORDS SUMMARY | 2017-10-24 12:46 | XMS REPORT | Summary of Care ---
:1955 Author Organization [facility] Internal Medicine [facility] Address [address] [place] [address] [address] [place] [address]- Encounter HQ Manjeet(DAVID) [id number] Date(s): 08/09/17 - 08/09/17 [facility] Internal Medicine [facility] [address] [facility], [address] [place] [phone] Discharge Disposition: Home or Self Care Attending Physician: Bradley Awad MD Vital Signs Most recent to oldest [Reference Range]: 1 Height 154.94 cm (08/09/17 11:05 AM) Blood Pressure [90-140/60-90 mmHg] 131/81 mmHg (08/09/17 11:05 AM) Respiratory Rate [14-20 BRMIN] 16 BRMIN (08/09/17 11:05 AM) Peripheral Pulse Rate [60-100 bpm] 86 bpm (08/09/17 11:05 AM) Weight 40.455 kg (08/09/17 11:05 AM) Body Mass Index 16.85 m2 (08/09/17 11:05 AM) Problem List Condition Effective Dates Status Health Status Informant Asthma(Confirmed) Active COPD(Confirmed) Active Hypertension(Confirmed) Resolved Seizures(Confirmed) Resolved Allergies, Adverse Reactions, Alerts Substance Reaction Severity Status NKDA Active Medications clonazePAM 0.5 mg oral tablet 0.25 mg=0.5 tab, PO, Daily, 0 Refill(s) Start Date: 08/09/17 Stop Date: 09/08/17 Status: Orderedlisinopril 10 mg oral tablet 10 mg=1 tab, PO, Daily, # 90 tab, 1 Refill(s) Start Date: 08/09/17 Status: Ordered Results No data available for [...] Completed 1Bi-Lateral SEEG Depth Placement with YOGI [id number] cell carcinoma removed from right inner elbow [...] smoker; Cigarette Smoking Last 365 Days Yes; [facility] Cessation Counseling Yes; Tobacco use per day: 5; Number of years: 40; 1 , 2 entered on: 08/09/17 1Patient stopped smoking 3 weeks ago.2pt informed about Smoking Cessation Clinic at the [facility] Assessment and Plan No data available for this section
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
--- OUTSIDE RECORDS SUMMARY | 2017-10-24 12:46 | XMS REPORT | Summary of Care ---
:1955 Author Organization [facility] Address [address], [place] [address]- Encounter HQ Mnajeet(DAVID) [id number] Date(s): 06/08/15 - 06/08/15 [facility] [address], [place] [address]- Red e App Discharge Disposition: Home Attending Physician: Mathieu White MD Referring Physician: Mathieu White MD Vital Signs No data available for this section Problem List Condition Effective Dates Status Health Status Informant Hypertension(Confirmed) Resolved Seizures(Confirmed) Resolved Allergies, Adverse Reactions, Alerts Substance Reaction Severity Status NKDA Active Medications No data available for this section Results No data available for this section Immunizations Vaccine Date Refusal Reason influenza virus vaccine, inactivated 02/16/15 Patient Refuses pneumococcal 23-valent vaccine 02/16/15 Patient Refuses Procedures Procedure Date Related Diagnosis Body Site section Knee arthroplasty Shoulder repair Social History Social [...]
--- OUTSIDE RECORDS SUMMARY | 2017-10-24 12:47 | XMS REPORT | Summary of Care ---
:1955 Author Organization [facility] Address [address] [place] [id number]- Encounter HQ Manjeet(FIN) [phone] Date(s): 07/25/16 - 07/25/[address] Professional Services provided by [facility] [place] [address]- Discharge Disposition: Home or Self Care Attending Physician: Emilia Orozco MD Vital Signs Most recent to oldest 1 2 3 [Reference Range]: Height 154.94 cm (07/25/16 9:53 AM) Temperature Oral [96.4-99.1 98.2 DegF 97.8 DegF 98.2 DegF DegF] (07/25/16 3:37 PM) (07/25/16 12:00 PM) (07/25/16 9:53 AM) Blood Pressure [90-140/60-90 145/80 mmHg 103/86 mmHg 128/70 mmHg mmHg] *HI* (07/25/16 1:00 PM) (07/25/16 12:00 PM) (07/25/16 3:37 PM) Respiratory Rate [14-20 22 BRMIN 22 BRMIN 20 BRMIN BRMIN] *HI* *HI* (07/25/16 12:00 PM) (07/25/16 3:37 PM) (07/25/16 1:00 PM) Peripheral Pulse Rate [60-100 112 bpm bpm] *HI* (07/25/16 9:53 AM) Weight 52.273 kg (07/25/16 9:53 AM) Body Mass Index 21.77 m2 (07/25/16 9:53 AM) Problem List Condition Effective Dates Status Health Status Informant Asthma(Confirmed) Active COPD(Confirmed) Active Hypertension(Confirmed) Resolved Seizures(Confirmed) Resolved Allergies, Adverse Reactions, Alerts Substance Reaction Severity Status NKDA Active Medications albuterol 0.083% inhalation solution 2.49 mg=3 mL, NEB, Q6H, PRN as needed for shortness of breath, # 120 ea, 3 Refill(s) Start Date: 07/25/16 Stop Date: 11/22/16 Status: Orderedalbuterol 0.083% inhalation solution 2.49 mg, 3 mL, Route: NEB, Drug form: SOLN, ONCE, Dosing Weight 52.273, kg, Priority: STAT, Start date: 07/25/16 10:15:00 CDT, Stop date: 07/25/16 10:15:00 CDT Notes: SEE RT DOCUMENTATION (Same as: Indigo) Start Date: 07/25/16 Stop Date: 07/25/16 Status: Completedalbuterol 0.083% inhalation solution 2.49 mg, 3 mL, Route: NEB, Drug form: SOLN, ONCE, Dosing Weight 52.273, kg, Priority: STAT, Start date: 07/25/16 11:57:00 CDT, Stop date: 07/25/16 11:57:00 CDT Notes: SEE RT DOCUMENTATION (Same as: Indigo) Start Date: 07/25/16 Stop Date: 07/25/16 Status: Completedalbuterol-ipratropium 2.5-0.5 mg inhalation solution 3 mL, Route: NEB, Drug Form: SOLN, Dosing Weight 52.273, kg, RQ6H, Start date: 07/25/16 20:00:00 CDT, Duration: 30 day, Stop date: 08/24/16 14:00:00 CDT Notes: (Same as: Duoneb) Start Date: 07/25/16 Stop Date: 07/26/16 Status: Discontinuedaspirin 81 mg, 1 tab, Route: CHEW, Drug form: CHEWTAB, ONCE, Dosing Weight 52.273, kg, Priority: STAT, Startdate: 07/25/16 10:25:00 CDT, Stop date: 07/25/16 10:25:00 CDT Notes: Take with food. Start Date: 07/25/16 Stop Date: 07/25/16 Status: Completedaspirin 162 mg, 2 tab, Route: CHEW, Drug form: ECTAB, ONCE, Dosing Weight 52.273, kg, Priority: STAT, Start date: 07/25/16 13:43:00 CDT, Stop date: 07/25/16 13:43:00 CDT Notes: Do not crush or chew.(Same As: Ecotrin) Start Date: 07/25/16 Stop Date: 07/25/16 Status: Completedatorvastatin 20 mg, 1 tab, Route: PO, Drug form: TAB, Bedtime, Dosing Weight 52.273, kg, Start date: 07/25/16 21:00:00 CDT, Duration: 30 day, Stop date: 08/23/16 21:00: 00 CDT Notes: (Same As: Lipitor) Start Date: 07/25/16 Stop Date: 07/26/16 Status: Discontinuedazithromycin 500 mg, Route: IVPB, Drug form: PDR/INJ, BFBP11O, Dosing Weight 52.273, kg, Start date: 07/25/16 15:00:00 CDT, Duration: 30 day, Stop date: 08/23/16 15:00: 00 CDT Notes: (Same As: Zithromax IV) Start Date: 07/25/16 Stop Date: 07/26/16 Status: Discontinuedazithromycin 500 mg, 2 tab, Route: PO, Drug form: TAB, ONCE, Dosing Weight 52.273, kg, Start date: 07/25/16 13:35:00 CDT, Stop date: 07/25/16 13:35:00 CDT Notes: Take 1 hour before or 2 hours after meals.(Same As: Zithromax) Start Date: 07/25/16 Stop Date: 07/25/16 Status: Completedazithromycin 500 mg oral tablet 500 mg=1 tab, PO, Daily, X 3 day, # 3 tab, 0 Refill(s) Start Date: 07/25/16 Stop Date: 07/28/16 Status: Orderedcetirizine 10 mg, 1 tab, Route: PO, Drug form: TAB, Daily, Start date: 07/26/16 9:00:00 CDT , Duration: 30 day, Stop date: 08/24/16 9:00:00 CDT Notes: (Same As: Zyrtec) Start Date: 07/26/16 Stop Date: 07/26/16 Status: DiscontinuedClaritin 10 mg, 1 tab, Route: PO, Daily, Dosing Weight 52.273, kg, PRN as needed for allergy symptoms, Start date: 07/25/16 14:23:00 CDT, Duration: 30 day, Stop date : 08/24/16 14:22:00 CDT Start Date: 07/25/16 Stop Date: 07/25/16 Status: DiscontinuedclonazePAM 0.5 mg, 1 tab, Route: PO, Drug form: TAB, Bedtime, Dosing Weight 52.273, kg, Start date: 07/25/16 21:00:00 CDT, Duration: 30 day, Stop date: 08/23/16 21:00: 00 CDT Notes: (Same As: KlonoPIN) Start Date: 07/25/16 Stop Date: 07/26/16 Status: Discontinueddocusate sodium 100 mg oral capsule 100 mg, 1 cap, Route: PO, Drug form: CAP, Q12H, Dosing Weight 52.273, kg, PRN Constipation, Start date: 07/25/16 14:22:00 CDT, Duration: 30 day, Stop date: 14:21:00 CDT Notes: (Same as: Colace) (Do Not Crush) Start Date: 07/25/16 Stop Date: 07/26/16 Status: DiscontinuedDuoNeb inhalation solution 3 ml, Route: NEB, Drug Form: SOLN, Dosing Weight 52.273, kg, PRN, PRN Respiratory Protocol, Start date: 07/25/16 10:15:00 CDT, Duration: 30 day, Stop date: 08/24/16 10:14:00 CDT Notes: (Same as: Duoneb) Start Date: 07/25/16 Stop Date: 07/26/16 Status: DiscontinuedDuoNeb inhalation solution 3 ml, Route: NEB, Drug Form: SOLN, Dosing Weight 52.273, kg, PRN, PRN Respiratory Protocol, Start date: 07/25/16 10:15:00 CDT, Duration: 30 day, Stop date: 08/24/16 10:14:00 CDT Notes: (Same as: Duoneb) Start Date: 07/25/16 Stop Date: 07/26/16 Status: DiscontinuedKeppra 1,000 mg, 2 tab, Route: PO, Drug form: TAB, ONCE, Dosing Weight 52.273, kg, Start date: 07/25/16 11:09:00 CDT, Stop date: 07/25/16 11:09:00 CDT Notes: (Same as:Keppra) Start Date: 07/25/16 Stop Date: 07/25/16 Status: CompletedLaMICtal 100 mg, 1 tab, Route: PO, Drug form: TAB, Daily, Start date: 07/26/16 9:00:00 CDT, Duration: 30 day,Stop date: 08/24/16 9:00:00 CDT Notes: (Same as:LaMICtal) Start Date: 07/26/16 Stop Date: 07/26/16 Status: DiscontinuedLaMICtal 50 mg, 2 tab, Route: PO, Drug form: TAB, Daily, Start date: 07/25/16 15:00:00 CDT, Duration: 30 day,Stop date: 08/24/16 9:00:00 CDT Notes: (Same as:LaMICtal) Start Date: 07/25/16 Stop Date: 07/26/16 Status: DiscontinuedlamoTRIgine 150 mg oral tablet 150 mg, 1 tab, Route: PO, Drug form: TAB, Daily, Dosing Weight 52.273, kg, Start date: 07/26/16 9:00:00 CDT, Duration: 30 day, Stop date: 08/24/16 9:00:00 CDT Start Date: 07/26/16 Stop Date: 07/25/16 Status: DiscontinuedlevETIRAcetam 1000 mg oral tablet 1,000 mg, 2 tab, Route: PO, Drug form: TAB, Daily, Dosing Weight 52.273, kg, Start date: 07/26/16 9:00:00 CDT, Duration: 30 day, Stop date: 08/24/16 9:00:00 CDT Notes: (Same as:Keppra) Start Date: 07/26/16 Stop Date: 07/26/16 Status: Discontinuedlisinopril 10 mg, 1 tab, Route: PO, Drug form: TAB, Daily, Dosing Weight 52.273, kg, Start date: 07/26/16 9:00:00 CDT, Duration: 30 day, Stop date: 08/24/16 9:00:00 CDT Notes: (Same as: Prinivanthony Zestril) Start Date: 07/26/16 Stop Date: 07/26/16 Status: DiscontinuedmethylPREDNISolone SODium SUCCinate 40 mg, 1 mL, Route: IVP, Drug form: INJ, Q8H, Dosing Weight 52.273, kg, Start date: 07/25/16 16:00:00 CDT, Duration: 30 day, Stop date: 08/24/16 8:00:00 CDT Notes: (Same as:Solu-MEDROL, A-Methapred) Start Date: 07/25/16 Stop Date: 07/26/16 Status: DiscontinuedNebulizer Misc/Other 1 ea, MISC, PRN, PRN As directed by physician, # 1 kit, 0 Refill(s) Start Date: 07/25/16 Stop Date: 07/25/17 Status: OrderedPepcid 20 mg oral tablet 20 mg, 1 tab, Route: PO, Drug form: TAB, BID, Dosing Weight 52.273, kg, Start date: 07/25/16 17:00:00 CDT, Duration: 30 day, Stop date: 08/24/16 9:00:00 CDT Notes: (Same as: Pepcid) Start Date: 07/25/16 Stop Date: 07/26/16 Status: DiscontinuedpredniSONE 60 mg, 3 tab, Route: PO, Drug form: TAB, ONCE, Dosing Weight 52.273, kg, Priority: STAT, Start date:07/25/16 14:33:00 CDT, Stop date: 07/25/16 14:33:00 CDT Notes: Take with food. Start Date: 07/25/16 Stop Date: 07/25/16 Status: CompletedpredniSONE 60 mg, 1.2 tab, Route: PO, Drug form: TAB, ONCE, Dosing Weight 52.273, kg, Priority: STAT, Start date: 07/25/16 13:35:00 CDT, Stop date: 07/25/16 13:35:00 CDT Notes: Take with food. Start Date: 07/25/16 Stop Date: 07/25/16 Status: DeletedpredniSONE 20 mg oral tablet 40 mg=2 tab, PO, Daily, Take 3 tablets for 60 mg dose, X 5 day, # 10 tab, 0 Refill(s) Start Date: 07/25/16 Stop Date: 07/30/16 Status: OrderedProAir HFA 90 mcg/inh inhalation aerosol with adapter 90 microgram=1 puff, INHALER, Q4H, PRN for wheezing, # 1 ea, 0 Refill(s) Start Date: 07/25/16 Stop Date: 08/24/16 Status: OrderedSpiriva 18 microgram, 1 inhalation, Route: INHALATION, Drug form: CAP, Daily, Dosing Weight 52.273, kg, Start date: 07/26/16 9:00:00 CDT, Duration: 30 day, Stop date : 08/24/16 9:00:00 CDT Notes: (Same As: Spiriva) Start Date: 07/26/16 Stop Date: 07/26/16 Status: DiscontinuedSpiriva 18 mcg inhalation capsule 18 microgram, INHALATION, Daily, # 30 ea, 0 Refill(s) Start Date: 07/25/16 Stop Date: 08/24/16 Status: OrderedSymbicort 160/4.5 inhalation aerosol with adapter 2 puff, INHALATION, BID, # 1 ea, 0 Refill(s) Start Date: 07/25/16 Stop Date: 08/24/16 Status: Orderedverapamil 120 mg, 1 tab, Route: PO, Drug form: ERTAB, Daily, Dosing Weight 52.273, kg, Start date: 07/26/16 9:00:00 CDT, Duration: 30 day, Stop date: 08/24/16 9:00:00 CDT Notes: Do not crush or chew.(Same As: Calan SR, Isoptin SR) "Avoid grapefruit and grapefruit juice" Start Date: 07/26/16 Stop Date: 07/26/16 Status: Discontinued Results ELECTROLYTES Most recent to oldest [Reference Range]: 1 2 Sodium Lvl [135-145 mEq/L] 140 mEq/L 144 mEq/L (07/25/16 2:46 PM) (07/25/16 10:20 AM) Potassium Lvl [3.5-5.1 mEq/L] 4.3 mEq/L 3.8 mEq/L (07/25/16 2:46 PM) (07/25/16 10:20 AM) Chloride Lvl [95-109 mEq/L] 105 mEq/L 105 mEq/L (07/25/16 2:46 PM) (07/25/16 10:20 AM) CO2 [24-32 mEq/L] 28 mEq/L 29 mEq/L (07/25/16 2:46 PM) (07/25/16 10:20 AM) AGAP [10.0-20.0 mEq/L] 11.3 mEq/L 13.8 mEq/L (07/25/16 2:46 PM) (07/25/16 10:20 AM) CHEM PANEL Most recent to oldest [Reference Range]: 1 2 Creatinine Lvl [0.50-1.40 mg/dL] 0.72 mg/dL 0.77 mg/dL (07/25/16 2:46 PM) (07/25/16 10:20 AM) eGFR 91 mL/min/1.73m2 1 84 mL/min/1.73m2 2 *NA* *NA* (07/25/16 2:46 PM) (07/25/16 10:20 AM) BUN [7-22 mg/dL] 7 mg/dL 8 mg/dL (07/25/16 2:46 PM) (07/25/16 10:20 AM) Glucose Lvl [70-99 mg/dL] 90 mg/dL 133 mg/dL (07/25/16 2:46 PM) *HI* (07/25/16 10:20 AM) Calcium Lvl [8.5-10.5 mg/dL] 8.7 mg/dL 9.2 mg/dL (07/25/16 2:46 PM) (07/25/16 10:20 AM) Phosphorus [2.5-4.5 mg/dL] 3.8 mg/dL (07/25/16 2:46 PM) Magnesium Lvl [1.8-2.4 mg/dL] 2.0 mg/dL (07/25/16 2:46 PM) 1Result Comment: The eGFR is calculated [...] eGFR should be multiplied by the estimated BMI.CARDIAC ENZYMES Most recent to oldest [Reference Range]: 1 2 Total CK [12-191 unit/L] 145 unit/L (07/25/16 2:46 PM) CK MB [0.5-3.6 ng/mL] 2.2 ng/mL (07/25/16 2:46 PM) CK MB Index [0.0-2.5] 1.5 (07/25/16 2:46 PM) Troponin-I [0.00-0.40 ng/mL] <0.02 ng/mL <0.02 ng/mL (07/25/16 2:46 PM) (07/25/16 10:20 AM) HEMATOLOGY Most recent to oldest [Reference Range]: 1 2 WBC [3.7-10.4 K/CMM] 6.0 K/CMM 5.8 K/CMM (07/25/16 2:46 PM) (07/25/16 10:20 AM) RBC [4.20-5.40 M/CMM] 4.58 M/CMM 4.83 M/CMM (07/25/16 2:46 PM) (07/25/16 10:20 AM) Hgb [12.0-16.0 g/dL] 14.7 g/dL 15.6 g/dL (07/25/16 2:46 PM) (07/25/16 10:20 AM) Hct [36.0-48.0 %] 44.1 % 46.9 % (07/25/16 2:46 PM) (07/25/16 10:20 AM) MCV [80.0-98.0 fL] 96.1 fL 96.9 fL (07/25/16 2:46 PM) (07/25/16 10:20 AM) MCH [27.0-31.0 pg] 32.1 pg 32.3 pg *HI* *HI* (07/25/16 2:46 PM) (07/25/16 10:20 AM) MCHC [32.0-36.0 g/dL] 33.4 g/dL 33.4 g/dL (07/25/16 2:46 PM) (07/25/16 10:20 AM) RDW [11.5-14.5 %] 13.6 % 13.7 % (07/25/16 2:46 PM) (07/25/16 10:20 AM) Platelet [133-450 K/CMM] 144 K/CMM 163 K/CMM (07/25/16 2:46 PM) (07/25/16 10:20 AM) MPV [7.4-10.4 fL] 7.5 fL 8.1 fL (07/25/16 2:46 PM) (07/25/16 10:20 AM) Segs [45.0-75.0 %] 62.5 % 64.9 % (07/25/16 2:46 PM) (07/25/16 10:20 AM) Lymphocytes [20.0-40.0 %] 25.1 % 22.2 % (07/25/16 2:46 PM) (07/25/16 10:20 AM) Monocytes [2.0-12.0 %] 10.7 % 10.9 % (07/25/16 2:46 PM) (07/25/16 10:20 AM) Eosinophils [0.0-4.0 %] 0.9 % 1.3 % (07/25/16 2:46 PM) (07/25/16 10:20 AM) Basophils [0.0-1.0 %] 0.8 % 0.7 % (07/25/16 2:46 PM) (07/25/16 10:20 AM) Segs-Bands # [1.5-8.1 K/CMM] 3.7 K/CMM 3.8 K/CMM (07/25/16 2:46 PM) (07/25/16 10:20 AM) Lymphocytes # [1.0-5.5 K/CMM] 1.5 K/CMM 1.3 K/CMM (07/25/16 2:46 PM) (07/25/16 10:20 AM) Monocytes # [0.0-0.8 K/CMM] 0.6 K/CMM 0.6 K/CMM (07/25/16 2:46 PM) (07/25/16 10:20 AM) Eosinophils # [0.0-0.5 K/CMM] 0.1 K/CMM 0.1 K/CMM (07/25/16 2:46 PM) (07/25/16 10:20 AM) Basophils # [0.0-0.2 K/CMM] 0.1 K/CMM (07/25/16 2:46 PM) Immunizations Not Given Vaccine Date Status Refusal Reason influenza virus vaccine, inactivated 02/16/15 Not Given Patient Refuses pneumococcal 23-valent vaccine 02/16/15 Not Given Patient Refuses Procedures Procedure Date Related Diagnosis Body Site Placement of depth electrode into brain for 12/13/15 electroencephalography1 section Colonoscopy Knee arthroplasty Operation2 Shoulder repair 1Bi-Lateral SEEG Depth Placement with YOGI 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 exacerbation resolved. continue symbicort, duoneb, zithromax x3, prednisone Ordered: Admit/Condition 2.Chest pain, Chest pain likely pruritic chest pain. EKG and Trop x2 negative Ordered: Admit/Condition Admit/Condition 3.Seizure resume home medication indra mazariegos keppra. see neurologist tomorrow, has appointment. 4.Benign essential HTN resume home medication. Orders: albuterol-ipratropium 2.5-0.5 mg inhalation solution, 3 mL, Route: NEB, Dosing Weight 52.273, kg, RQ6H, Start date: 07/25/16 20:00:00 CDT, Duration: 30 day, Stop date: 08/24/16 14:00:00 CDT atorvastatin, 20 mg, Route: PO, Drug form: TAB, Bedtime, Dosing Weight 52.273, kg, Start date: 07/25/16 21:00:00 CDT, Duration: 30 day, Stop date: 01/30 21:00:00 CDT azithromycin, 500 mg, Route: IVPB, [id number], Dosing Weight 52.273, kg, Start date: 07/25/16 15:00:00 CDT, Duration: 30 day, Stop date: 08/23/16 15:00:00 CDT clonazePAM, 0.5 mg, Route: PO, Drug form: TAB, Bedtime, Dosing Weight 52.273 , kg, Start date: 07/25/16 21:00:00 CDT, Duration: 30 day, Stop date: 08/23/16 21:00:00 CDT docusate sodium 100 mg oral capsule, 100 mg, 1 cap, Route: PO, Drug form: CAP, Q12H, Dosing Weight 52.273, kg, PRN Constipation, Start date: 07/25/16 14: 22:00 CDT, Duration: 30 day, Stop date: 08/24/16 14:21:00 CDT Pepcid 20 mg oral tablet, 20 mg, 1 tab, Route: PO, Drug form: TAB, BID, Dosing Weight 52.273, kg, Start date: 07/25/16 17:00:00 CDT, Duration: 30 day, Stop date: 08/24/16 9:00:00 CDT lamoTRIgine 150 mg oral tablet, 150 mg, 1 tab, Route: PO, Drug form: TAB, Daily, Dosing Weight 52.273, kg, Start date: 07/26/16 9:00:00 CDT, Duration: 30 day, Stop date: 08/24/16 9:00:00 CDT levETIRAcetam 1000 mg oral tablet, 1,000 mg, 1 tab, Route: PO, Drug form: TAB, Daily, Dosing Weight 52.273, kg, Start date: 07/26/16 9:00:00 CDT, Duration : 30 day, Stop date: 08/24/16 9:00:00 CDT lisinopril, 10 mg, Route: PO, Drug form: TAB, Daily, Dosing Weight 52.273, kg, Start date: 07/26/16 9:00:00 CDT, Duration: 30 day, Stop date: 08/24/16 9:00 :00 CDT Claritin, 10 mg, 1 tab, Route: PO, Daily, Dosing Weight 52.273, kg, PRN as needed for allergy symptoms, Start date: 07/25/16 14:23:00 CDT, Duration: 30 day , Stop date: 08/24/16 14:22:00 CDT methylPREDNISolone SODium SUCCinate, 40 mg, Route: IVP, Q8H, Dosing Weight 52.273, kg, Start date: 07/25/16 16:00:00 CDT, Duration: 30 day, Stop date: 03/02 8:00:00 CDT Spiriva, 18 microgram, Route: INHALATION, Daily, Dosing Weight 52.273, kg, Start date: 07/26/16 9:00:00 CDT, Duration: 30 day, Stop date: 08/24/16 9:00:00 CDT verapamil, 120 mg, Route: PO, Drug form: TAB, Daily, Dosing Weight 52.273, kg, Start date: 07/26/16 9:00:00 CDT, Duration: 30 day, Stop date: 08/24/16 9:00 :00 CDT Up ad maribel Ambulation Basic Metabolic Panel CDM Cardiac Enzymes Panel CDM COPD Admission Complete Blood Count w/ Diff and Platelet Creatine Kinase w/ Reflex MB Isoenzyme Diet Adult Regular Magnesium Level Oxygen Therapy Patient Education AC4 Patient Education AC4 Patient Education AC4 Provide Education AC4 Peak Flow Phosphorus Level Respiratory Therapy Consult Resuscitation (Code) Status Telemetry (e.g. Acute Care Floor) Troponin-I Vital Signs Prophylaxis ambulation Disposition discharge today.
--- OUTSIDE RECORDS SUMMARY | 2017-10-24 12:47 | XMS REPORT | Summary of Care ---
:1955 Author Organization [facility] Address [address] [place] [id number] Encounter HQ Jose_nara(FIN) [phone] Date(s): 01/17/16 - 01/18/[address] Professional Services provided by [facility] [place] [address]- Discharge Disposition: Home or Self Care Attending Physician: Mathieu White MD Admitting Physician: Mathieu White MD Referring Physician: Mathieu White MD Vital Signs Most recent to oldest 1 2 3 [Reference Range]: Height 154.94 cm (01/10/16 8:42 AM) Temperature Oral [96.4-99.1 98.3 DegF 1 97.5 DegF 97.9 DegF DegF] (01/18/16 4:43 AM) (01/17/16 8:43 PM) (01/17/16 3:50 PM) Blood Pressure [90-140/60-90 111/59 mmHg 112/66 mmHg 100/59 mmHg mmHg] (01/18/16 9:00 AM) (01/18/16 8:00 AM) (01/18/16 7:00 AM) Respiratory Rate [14-20 BRMIN] 23 BRMIN 19 BRMIN 19 BRMIN *HI* (01/18/16 8:00 AM) (01/18/16 7:43 AM) (01/18/16 9:00 AM) Peripheral Pulse Rate [60-100 81 bpm bpm] (01/17/16 6:49 AM) Weight 41.875 kg 42.727 kg (01/18/16 8:00 AM) (01/10/16 8:42 AM) Body Mass Index 17.8 m2 (01/10/16 8:42 AM) 1Result Comment: wrong time Problem List Condition Effective Dates Status Health Status Informant Asthma(Confirmed) Active COPD(Confirmed) Active Hypertension(Confirmed) Resolved Seizures(Confirmed) Resolved Allergies, Adverse Reactions, Alerts Substance Reaction Severity Status NKDA Active Medications atorvastatin 20 mg, 1 tab, Route: PO, Drug form: TAB, Bedtime, Dosing Weight 42.727, kg, Start date: 01/17/16 21:00:00 CDT, Duration: 30 day, Stop date: 02/15/16 21:00: 00 CDT Notes: (Same As: Lipitor) Start Date: 01/17/16 Stop Date: 01/18/16 Status: DiscontinuedceFAZolin 2 gm, 100 mL, Route: IVPB, Drug form: INJ, PRE OP, Start date: 01/17/16 5:00:00 CDT, Duration: 1 day, Stop date: 01/18/16 4:59:00 CDT Notes: Same as: Ancef Start Date: 01/17/16 Stop Date: 01/17/16 Status: CompletedceFAZolin 1 gm, Route: IVPB, ABXQ8H, Dosing Weight 42.727, kg, For < 70 kg, Start date : 01/17/16 7:00:00 CDT, Duration: 2 day, Stop date: 01/18/16 23:00:00 CDT Start Date: 01/17/16 Stop Date: 01/17/16 Status: DeletedceFAZolin 1 gm, Route: IV, Drug form: PDR/INJ, ABXQ8H, Start date: 01/17/16 18:00:00 CDT, Duration: 2 day, Stop date: 01/19/16 10:00:00 CDT Notes: (Same As: Ancef, Kefzol) MEDICATION WASTE Product Size: 1000 mgProduct Wasted: _0__mg Start Date: 01/17/16 Stop Date: 01/18/16 Status: DiscontinuedclonazePAM 0.5 mg, 1 tab, Route: PO, Drug form: TAB, Bedtime, Dosing Weight 42.727, kg, Start date: 01/17/16 21:00:00 CDT, Duration: 30 day, Stop date: 02/15/16 21:00: 00 CDT Notes: (Same As: KlonoPIN) Start Date: 01/17/16 Stop Date: 01/18/16 Status: Discontinueddexamethasone 4 mg, 1 mL, Route: IVP, Drug form: INJ, Q6H, Dosing Weight 42.727, kg, Start date: 01/17/16 12:00:00CDT, Duration: 5 day, Stop date: 01/22/16 6:00:00 CDT Notes: Concentration: 4mg/ml Start Date: 01/17/16 Stop Date: 01/18/16 Status: Discontinueddexamethasone 4 mg oral tablet 4 mg=1 tab, PO, TID, Taper schedule: 3x a day for days 1/2, 2x a day for days 3/ 4, daily for days 5/6, 1/2 tab daily for day 7, X 7 day, # 21 tab, 0 Refill(s) Start Date: 01/18/16 Stop Date: 01/25/16 Status: Ordereddocusate sodium 100 mg oral capsule 100 mg, 1 cap, Route: PO, Drug form: CAP, Q12H, Dosing Weight 42.727, kg, Start date: 01/17/16 9:00:00 CDT, Duration: 30 day, Stop date: 02/15/16 21:00:00 CDT Notes: (Same as: Colace) (Do Not Crush) Start Date: 01/17/16 Stop Date: 01/18/16 Status: Discontinueddocusate sodium 100 mg oral capsule 100 mg, 1 cap, Route: PO, Drug form: CAP, Q12H, Dosing Weight 42.727, kg, Start date: 01/17/16 9:00:00 CDT, Duration: 30 day, Stop date: 02/15/16 21:00:00 CDT Notes: (Same as: Colace) (Do Not Crush) Start Date: 01/17/16 Stop Date: 01/18/16 Status: Discontinueddocusate sodium 100 mg oral capsule 100 mg=1 cap, PO, Q12H, PRN as needed for constipation, # 30 cap, 0 Refill(s) Start Date: 01/18/16 Status: OrderedInsulin regular 8 unit, 0.08 mL, Route: SUB-Q, Drug form: SOLN, Sliding Scale, Dosing Weight 42.727, kg, PRN Blood Glucose Results, Start date: 01/17/16 6:13:00 CDT, Duration: 30 day, Stop date: 02/16/16 6:12:00 CDT Notes: (Same as: Humulin R) Roll in palms of hands gently; Do not shake vigorously. "single patientuse only"(Restricted to patients requiring a dose > 60 units)WASTE: F/P - Black; E - Municipal Trash Bin Stable for 28 days at room temperatureExpires in days from Date Start Date: 01/17/16 Stop Date: 01/18/16 Status: DiscontinuedInsulin regular 10 unit, 0.1 mL, Route: SUB-Q, Drug form: SOLN, Sliding Scale, Dosing Weight 42.727, kg, PRN Blood Glucose Results, Start date: 01/17/16 6:13:00 CDT, Duration: 30 day, Stop date: 02/16/16 6:12:00 CDT Notes: (Same as: Humulin R) Roll in palms of hands gently; Do not shake vigorously. "single patientuse only"(Restricted to patients requiring a dose > 60 units)WASTE: F/P - Black; E - Municipal Trash Bin Stable for 28 days at room temperatureExpires in days from Date Start Date: 01/17/16 Stop Date: 01/18/16 Status: DiscontinuedInsulin regular 6 unit, 0.06 mL, Route: SUB-Q, Drug form: SOLN, Sliding Scale, Dosing Weight 42.727, kg, PRN Blood Glucose Results, Start date: 01/17/16 6:13:00 CDT, Duration: 30 day, Stop date: 02/16/16 6:12:00 CDT Notes: (Same as: Humulin R) Roll in palms of hands gently; Do not shake vigorously. "single patientuse only"(Restricted to patients requiring a dose > 60 units)WASTE: F/P - Black; E - Municipal Trash Bin Stable for 28 days at room temperatureExpires in days from Date Start Date: 01/17/16 Stop Date: 01/18/16 Status: DiscontinuedInsulin regular 2 unit, 0.02 mL, Route: SUB-Q, Drug form: SOLN, Sliding Scale, Dosing Weight 42.727, kg, PRN Blood Glucose Results, Start date: 01/17/16 6:13:00 CDT, Duration: 30 day, Stop date: 02/16/16 6:12:00 CDT Notes: (Same as: Humulin R) Roll in palms of hands gently; Do not shake vigorously. "single patientuse only"(Restricted to patients requiring a dose > 60 units)WASTE: F/P - Black; E - Municipal Trash Bin Stable for 28 days at room temperatureExpires in days from Date Start Date: 01/17/16 Stop Date: 01/18/16 Status: DiscontinuedInsulin regular 4 unit, 0.04 mL, Route: SUB-Q, Drug form: SOLN, Sliding Scale, Dosing Weight 42.727, kg, PRN Blood Glucose Results, Start date: 01/17/16 6:13:00 CDT, Duration: 30 day, Stop date: 02/16/16 6:12:00 CDT Notes: (Same as: Humulin R) Roll in palms of hands gently; Do not shake vigorously. "single patientuse only"(Restricted to patients requiring a dose > 60 units)WASTE: F/P - Black; E - Municipal Trash Bin Stable for 28 days at room temperatureExpires in days from Date Start Date: 01/17/16 Stop Date: 01/18/16 Status: DiscontinuedlamoTRIgine 150 mg oral tablet 150 mg, 1.5 tab, Route: PO, Drug form: TAB, Daily, Dosing Weight 42.727, kg, Start date: 01/17/16 9:00:00 CDT, Duration: 30 day, Stop date: 02/15/16 9:00:00 CDT Notes: (Same as:LaMICtal) Start Date: 01/17/16 Stop Date: 01/18/16 Status: DiscontinuedlevETIRAcetam 1000 mg oral tablet 1,000 mg, 2 tab, Route: PO, Drug form: TAB, Daily, Dosing Weight 42.727, kg, Start date: 01/17/16 9:00:00 CDT, Duration: 30 day, Stop date: 02/15/16 9:00:00 CDT Notes: (Same as:Keppra) Start Date: 01/17/16 Stop Date: 01/18/16 Status: Discontinuedlisinopril 10 mg, 1 tab, Route: PO, Drug form: TAB, Daily, Dosing Weight 42.727, kg, Start date: 01/17/16 9:00:00 CDT, Duration: 30 day, Stop date: 02/15/16 9:00:00 CDT Notes: (Same as: Deidre Javier) Start Date: 01/17/16 Stop Date: 01/18/16 Status: Discontinuedmorphine Sulfate 2 mg, 1 mL, Route: IVP, Drug form: INJ, Q1H, Dosing Weight 42.727, kg, PRN Pain Score 7-10, Start date: 01/17/16 6:13:00 CDT, Duration: 30 day, Stop date: 02/15 6:12:00 CDT Notes: (Same as:MORPhine Sulfate) Start Date: 01/17/16 Stop Date: 01/18/16 Status: DiscontinuedNorco 10/325 oral tablet 1 tab, Route: PO, Drug Form: TAB, Dosing Weight 42.727, kg, Q4H, PRN Pain Score 1-3, Start date: 01/17/16 14:11:00 CDT, Duration: 30 day, Stop date: 02/16/16 14 :10:00 CDT Notes: (Same as: [place] 325/10) Start Date: 01/17/16 Stop Date: 01/18/16 Status: DiscontinuedNS + KCL 20mEq/L 1000ml (Premix) 1,000 mL 1,000 mL, Rate: 70 ml/hr, Infuse over: 14.3 hr, Route: IV, Dosing Weight 42.727 kg, Total Volume: 1,000, Start date: 01/17/16 5:00:00 CDT, Duration: 1 day, Stop date: 01/18/16 4:59:00 CDT Notes: PREMIX IV - Do Not AlterWASTE: F/P - Sink; E - Municipal Trash Bin Start Date: 01/17/16 Stop Date: 01/18/16 Status: Completedondansetron 4 mg, 2 mL, Route: IVP, Drug form: INJ, Q8H, Dosing Weight 42.727, kg, PRN Nausea & Vomiting, Start date: 01/17/16 6:13:00 CDT, Duration: 30 day, Stop date: 02/16/16 6:12:00 CDT Notes: (Same as: Jez) MEDICATION WASTE Product Size: 4 mgProduct Wasted: __0_ mg Start Date: 01/17/16 Stop Date: 01/18/16 Status: Discontinuedpantoprazole 40 mg, 1 tab, Route: PO, Drug form: ECTAB, Before Dinner, Dosing Weight 42.727, kg, Start date: 01/17/16 16:30:00 CDT, Duration: 30 day, Stop date: 02/15/16 16: 30:00 CDT Notes: Tablet should not be chewed or crushed.(Same as: Protonix) Start Date: 01/17/16 Stop Date: 01/18/16 Status: DiscontinuedPepcid 20 mg oral tablet 20 mg=1 tab, PO, BID, # 60 tab, 0 Refill(s) Start Date: 01/18/16 Status: OrderedProAir HFA 90 mcg/inh inhalation aerosol with adapter 1 puff, Route: INHALER, Drug Form: AERO/A, Dosing Weight 42.727, kg, Q4H, PRN Wheezing, Start date: 01/17/16 6:15:00 CDT, Duration: 30 day, Stop date: 6:14:00 CDT Notes: Albuterol 90 microgram/inh 8gm HFAWASTE: Aerosol - Return to Pharmacy Same as: [facility] Start Date: 01/17/16 Stop Date: 01/18/16 Status: DiscontinuedSaline Flush 0.9% 10 ml, Route: IVP, Drug Form: INJ, Dosing Weight 42.727, kg, PRN, PRN Line Flush , Start date: 01/17/16 6:13:00 CDT, Duration: 30 day, Stop date: 02/16/16 6:12: 00 CDT Notes: (Same as: BD Posiflush) Start Date: 01/17/16 Stop Date: 01/18/16 Status: DiscontinuedSaline Flush 0.9% 10 ml, Route: IVP, Drug Form: INJ, Dosing Weight 42.727, kg, Q12H, Start date: 01/17/16 9:00:00 CDT,Duration: 30 day, Stop date: 02/15/16 21:00:00 CDT Notes: (Same as: BD Posiflush) Start Date: 01/17/16 Stop Date: 01/18/16 Status: Discontinuedsenna 8.6 mg, 1 tab, Route: PO, Drug Form: TAB, Dosing Weight 42.727, kg, Q12H, Start date: 01/17/16 9:00:00 CDT, Duration: 30 day, Stop date: 02/15/16 21:00:00 CDT Notes: (Same as: Senokot) Start Date: 01/17/16 Stop Date: 01/18/16 Status: Discontinuedsodium chloride 0.9% 1000 ml INJ 1,000 mL 1,000 mL, Rate: 100 ml/hr, Infuse over: 10 hr, Route: IV, Dosing Weight 42.727 kg, Total Volume: 1,000, Start date: 01/17/16 6:13:00 CDT, Duration: 30 day, Stop date: 02/16/16 6:12:00 CDT Start Date: 01/17/16 Stop Date: 01/18/16 Status: DiscontinuedSpiriva 18 microgram, 1 inhalation, Route: INHALATION, Drug form: CAP, Daily, Dosing Weight 42.727, kg, Start date: 01/17/16 9:00:00 CDT, Duration: 30 day, Stop date : 02/15/16 9:00:00 CDT Notes: (Same As: Spiriva) Start Date: 01/17/16 Stop Date: 01/18/16 Status: DiscontinuedTylenol with Codeine #3 oral tablet 2 tab, PO, Q4H, PRN Pain Score 4-6, X 14 day, # 90 tab, 0 Refill(s) Start Date: 01/18/16 Stop Date: 02/01/16 Status: Orderedvancomycin 1 gm, Route: IVPB, Drug form: INJ, ABXQ8H, Start date: 01/17/16 18:30:00 CDT, Duration: 48 hr, Stop date: 01/19/16 10:30:00 CDT Notes: TIME CRITICAL MEDICATION(Same As: Vancocin)Infusion rate< 1000 mg: infuse over 1 [id number] - 1500 mg: infuse over 1.5 [id number] - 2000 mg: infuse over 2 hours> 2001 mg: infuse over 2.5 hours MEDICATION WASTE Product Size: 1000 mgProduct Wasted: _0__mg Start Date: 01/17/16 Stop Date: 01/18/16 Status: Discontinuedvancomycin (SCIP) 1 gm, Route: IVPB, Drug form: INJ, ONCE, Dosing Weight 42.727, kg, Start date: 01/17/16 10:19:00 CDT, Stop date: 01/17/16 10:19:00 CDT Start Date: 01/17/16 Stop Date: 01/17/16 Status: Completedvancomycin (SCIP) 1,000 mg, Route: IVPB, Drug form: INJ, Q8H, Dosing Weight 42.727, kg, Start date : 01/17/16 8:00:00 CDT, Duration: 48 hr, Stop date: 01/19/16 0:00:00 CDT Start Date: 01/17/16 Stop Date: 01/17/16 Status: DeletedVentolin HFA 90 mcg/inh inhalation aerosol with adapter 2 puff, Route: INHALER, Drug Form: AERO/A, Dosing Weight 42.727, kg, QID, PRN as needed for wheezing, Start date: 01/17/16 6:15:00 CDT, Duration: 30 day, Stop date: 02/16/16 6:14:00 CDT Notes: Albuterol 90 microgram/inh 8gm HFAWASTE: Aerosol - Return to Pharmacy Same as: Ventolin Proventil Start Date: 01/17/16 Stop Date: 01/18/16 Status: Discontinuedverapamil 120 mg, 1 tab, Route: PO, Drug form: ERTAB, Daily, Dosing Weight 42.727, kg, Start date: 01/17/16 9:00:00 CDT, Duration: 30 day, Stop date: 02/15/16 9:00:00 CDT Notes: Do not crush or chew.(Same As: Calan SR, Isoptin SR) "Avoid grapefruit and grapefruit juice" Start Date: 01/17/16 Stop Date: 01/18/16 Status: Discontinued Results BLOOD BANK RESULTS Most recent to oldest [Reference Range]: 1 ABO/Rh A POS *Unknown* (01/17/16 6:23 AM) Antibody Scrn Negative (01/17/16 6:23 AM) ELECTROLYTES Most recent to oldest [Reference Range]: 1 Sodium Lvl [135-145 mEq/L] 143 mEq/L (01/17/16 6:23 AM) Potassium Lvl [3.5-5.1 mEq/L] 3.5 mEq/L (01/17/16 6:23 AM) Chloride Lvl [95-109 mEq/L] 111 mEq/L *HI* (01/17/16 6:23 AM) CO2 [24-32 mEq/L] 27 mEq/L (01/17/16 6:23 AM) AGAP [10.0-20.0 mEq/L] 8.5 mEq/L *LOW* (01/17/16 6:23 AM) CHEM PANEL Most recent to oldest [Reference Range]: 1 Creatinine Lvl [0.50-1.40 mg/dL] 0.68 mg/dL (01/17/16 6:23 AM) eGFR 95 mL/min/1.73m2 1 *NA* (01/17/16 6:23 AM) BUN [7-22 mg/dL] 11 mg/dL (01/17/16 6:23 AM) B/C Ratio [6-25] 16 (01/17/16 6:23 AM) Glucose Lvl [70-99 mg/dL] 99 mg/dL (01/17/16 6:23 AM) Total Protein [6.4-8.4 g/dL] 6.5 g/dL (01/17/16 6:23 AM) Albumin Lvl [3.5-5.0 g/dL] 3.7 g/dL (01/17/16 6:23 AM) Globulin [2.7-4.2 g/dL] 2.8 g/dL (01/17/16 6:23 AM) A/G Ratio [0.7-1.6] 1.3 (01/17/16 6:23 AM) Calcium Lvl [8.5-10.5 mg/dL] 8.3 mg/dL *LOW* (01/17/16:23 AM) ALT [0-65 unit/L] 19 unit/L (01/17/16 6:23 AM) AST [0-37 unit/L] 13 unit/L (01/17/16 6:23 AM) Alk Phos [39-136 unit/L] 72 unit/L (01/17/16 6:23 AM) Bili Total [0.2-1.3 mg/dL] 0.3 mg/dL (01/17/16 6:23 AM) 1Result Comment: The eGFR is calculated [...] eGFR should be multiplied by the estimated BMI.HEMATOLOGY Most recent to oldest [Reference Range]: 1 WBC [3.7-10.4 K/CMM] 5.5 K/CMM (01/17/16 6:23 AM) RBC [4.20-5.40 M/CMM] 4.28 M/CMM (01/17/16 6:23 AM) Hgb [12.0-16.0 g/dL] 13.9 g/dL (01/17/16 6:23 AM) Hct [36.0-48.0 %] 41.6 % (01/17/16 6:23 AM) MCV [80.0-98.0 fL] 97.0 fL (01/17/16 623 AM) MCH [27.0-31.0 pg] 32.5 pg *HI* (01/17/16 AM) MCHC [32.0-36.0 g/dL] 33.5 g/dL (01/17/1623 AM) RDW [11.5-14.5 %] 13.4 % (01/17/16 AM) Platelet [133-450 K/CMM] 141 K/CMM (01/17/1623 AM) MPV [7.4-10.4 fL] 10.0 fL (01/17/1623 AM) Segs [45.0-75.0 %] 61.6 % (01/17/1623 AM) Lymphocytes [20.0-40.0 %] 28.2 % (01/17/1623 AM) Monocytes [2.0-12.0 %] 8.6 % (01/17/1623 AM) Eosinophils [0.0-4.0 %] 1.3 % (01/17/16 6:23 AM) Basophils [0.0-1.0 %] 0.3 % (01/17/1623 AM) Segs-Bands # [1.5-8.1 K/CMM] 3.4 K/CMM (01/17/16:23 AM) Lymphocytes # [1.0-5.5 K/CMM] 1.5 K/CMM (01/17/1623 AM) Monocytes # [0.0-0.8 K/CMM] 0.5 K/CMM (01/17/16 6:23 AM) Eosinophils # [0.0-0.5 K/CMM] 0.1 K/CMM (01/17/1623 AM) PT [12.0-14.7 seconds] 13.0 seconds (01/17/16 6:23 AM) INR [0.85-1.17] 0.96 (01/17/16 6:23 AM) PTT [22.9-35.8 seconds] 25.2 seconds (10/3/16 6:23 AM) Immunizations Not Given Vaccine Date Status Refusal Reason influenza virus vaccine, inactivated 02/16/15 Not Given Patient Refuses pneumococcal 23-valent vaccine 02/16/15 Not Given Patient Refuses Procedures Procedure Date Related Diagnosis Body Site Placement of depth electrode into brain for 12/13/15 electroencephalography1 section Colonoscopy Knee arthroplasty Operation2 Shoulder repair 1Bi-Lateral SEEG Depth Placement with YOGI 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
[2017-10-24] MEDS ORDERED: ONDANSETRON 4 MG/2 ML VIAL ONE (13:01)
[2017-10-24] MEDS ORDERED: LIDOCAINE 1% MPF 5 ML VIAL ONE (13:01)
[2017-10-24 13:28] LABS: Absolute Lymphocytes (CBC) 2.6 K/uL (0.7-4.9); Absolute Monocytes 0.8 K/uL (0.1-1.3); Absolute Neutrophil 8.7 K/uL (1.8-8.0); Basophils % 0.5 % (0-1.3); Eosinophils % 0.7 % (0-4.4); Hematocrit 44.6 % (36.0-45.0); Lymphocytes % 20.9 % (15.3-44.8); MCH 31.2 pg (27.0-35.0); MCV 94.2 fL (80-100); Monocytes % 6.8 % (3.3-12.3); RBC Red Blood Cell Count 4.74 M/uL (3.86-4.86)
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
--- NOTE | 2017-10-24 13:39 | RAD REPORT ---
EXAM DESCRIPTION: RAD - Ankle Left 3 View -10/24/2017 1:18 pm CLINICAL HISTORY: Left ankle pain status post injury FINDINGS: Soft tissue swelling is present about the lateral ankle and hindfoot. A 2 millimeter bony/ calcific density lies adjacent to the lateral hindfoot. This may represent an acute avulsed bone frag ment. Clinical correlation is needed see the patient has point tenderness in this region to suggest a n acute fracture. No dislocation is noted
[2017-10-24 13:48] LABS: Potassium 3.9 mmol/L (3.5-5.1)
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
[2017-10-24] MEDS ORDERED: levETIRAcetam 1,000 MG in NA CHLORIDE 0.9% 100 ML IV ONE (15:15)
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
[2017-10-24 16:33] VITALS: TEMP 98.7
[2017-10-24 16:36] VITALS: BP 129/78; O2SAT 92
== END 2017-10-24 16:22 | disposition home or self-care (01) ==
LOC: ER 12:38
PROC: 0JQN0ZZ Repair Right Lower Leg Subcutaneous Tissue and Fascia, Open Approach (ICD-10-PCS; principal; 2017-10-24)
DX: S81.811A Laceration without foreign body, right lower leg, initial encounter (principal); S82.892A Other fracture of left lower leg, initial encounter for closed fracture; S22.32XA Fracture of one rib, left side, initial encounter for closed fracture; V89.2XXA Person injured in unspecified motor-vehicle accident, traffic, initial encounter; I10 Essential (primary) hypertension
CPT/HCPCS: 36415; 70450; 71260; 72125; 74177; 80048; 85025; 86850; 86900; 86901; 96374; 99285; J1953; J2405; Q9967